=== PATIENT | male | born 1940 | race Caucasian/White ===

== ENCOUNTER 2016-07-22 10:12 | Outpatient (CLI) | payer OTHER ==
[~2016-07-22 10:12] MED LIST: ASPIRIN 81 LOW81 MG PO; B12-ACTIVE1 MG PO; COREG25 MG PO; DYAZIDE1 CAP PO; FLOVENT HFA110 MCG IN; LEVOFLOXACIN250 MG PO; LISINOPRIL10 MG PO; MAXZIDE-25 PO; SIMVASTATIN20 MG; TAMIFLU30 MG PO; TAMIFLU75 MG PO; VENTOLIN HFA IN; VITAMIN D-32000 UNIT PO
--- NOTE | 2016-07-22 16:02 | DIAGNOSTIC IMAGING REPORT ---
PROCEDURE: XR BARIUM SWALLOW INDICATION: Persistent cough. Congestion. Recent pneumonia. TECHNIQUE: Double contrast study. Fluoroscopy time, 3.5 minutes; (N/A mGy due to technical factors). 47 fluoroscopic images (including cine fluoroscopy of the esophagus). COMPARISON: Compared to chest x-ray and 07/05/2016. FINDINGS: Pharyngoesophagus is normal. There is moderate generalized tapering of the distal thoracic esophagus (8 mm) with moderate distention of the thoracic esophagus, and pooling of ingested fluid. There was no evidence of reflux on this study. The rest of the thoracic esophagus is normal. No polypoid or mass lesions are identified. IMPRESSION: 1. Normal pharyngoesophagus. 2. There is distention of the thoracic esophagus with generalized tapering and narrowing of the distal esophagus (8 mm). This is associated with pooling of ingested material in the esophagus. Overall appearance is compatible with achalasia. While there is no evidence of reflux on this study, one might also consider the possibility of chronic reflux stricture. 3. Findings discussed with the patient.
[2016-08-24] MEDS ORDERED: FUROSEMIDE20 MG PO ×2 (04:48)
== END 2016-07-22 23:00 ==
LOC: XR SRH 10:12
DX: R05 Cough (principal)

== ENCOUNTER 2016-07-24 13:08 | Outpatient (CLI) | payer OTHER ==
--- NOTE | 2016-07-26 12:45 | DIAGNOSTIC IMAGING REPORT ---
PROCEDURE: 2-D M-mode echo Doppler CLINICAL INDICATION: Atrial head abnormal EKG history of mitral valve repair aortic dissection repair aortic dissection repair TECHNIQUE: Standard 2-D M-mode echo Doppler technique COMPARISON: None available FINDINGS: This is a technically difficult study with the patient not been able to lie still and poor windows. The aortic valve exhibits aortic sclerosis with 1+ aortic insufficiency the mitral valve has evidence of repair with 2+ MR detected. The tricuspid valve is normal configuration with severe TR is apparent with RVSP 59 pulmonic valve appears to be normal but is poorly visualized left and right atrial dimensions are increased ventricular dimension is normal LVH is present left ventricular ejection fraction is 50-55% mildly diffusely decreased. The aortic root is increased in size measuring 4.7 cm small area dissection cannot be ruled out in this technically difficult study. There is an area in the abdominal aorta/lower thoracic aorta measures 6.3 cm right ventricle is mildly moderately increased in size with preserved function IMPRESSION: Technically difficult study Aortic sclerosis no stenosis Cannot rule out bicuspid aortic valve 1+ AI 2+ MR 3+ severe TR with RVSP 59 Aortic root is enlarged and 4.7 cm Lower thoracic/upper abdominal aorta measuring 6.3 cm RVE with mild to moderate reduction RV function Recommend: CTA of the thoracic and abdominal and clinical correlation
[2016-08-24] MEDS ORDERED: FUROSEMIDE20 MG PO ×2 (04:48)
== END 2016-07-24 23:00 ==
LOC: US SRH 13:08
DX: I48.91 Unspecified atrial fibrillation (principal); I70.0 Atherosclerosis of aorta; I08.3 Combined rheumatic disorders of mitral, aortic and tricuspid valves

== ENCOUNTER 2016-08-23 18:33 | Inpatient (IN) | payer OTHER ==
[~2016-08-23] VITALS: Ht 170.2 cm; Wt 73.3 kg
--- NOTE | 2016-08-23 22:00 | DIAGNOSTIC IMAGING REPORT ---
PROCEDURE: XR CHEST 1 VIEW INDICATION: EDEMA TECHNIQUE: Portable AP view (2230 hours). COMPARISON: Compared to chest x-ray on 07/05/2016. FINDINGS: Interval resolution of pulmonary edema and small right pleural effusion. Large calcified left pleural plaque. Status post mediastinotomy. Moderate cardiomegaly. Tortuous aorta. Thorax is unchanged. IMPRESSION: 1. Interval resolution of pulmonary edema. 2. Large calcified left pleural plaques. 3. Moderate cardiomegaly. Status post mediastinotomy. 4. Otherwise negative chest.
--- NOTE | 2016-08-23 22:17 | ED CLINICAL REPORT ---
Clinical Report - Physicians/Mid Levels [facility] [address] [place] [address] 08/23/2016 18:33 Patient: ERYN ALVARADO Time Seen: 20:00. Arrived- By private vehicle. Historian- patient. HISTORY OF PRESENT ILLNESS Chief Complaint: (scrotal swelling). This started about 1 week ago and is still present. The problem is described as severe. It was gradual in onset and has been constant. No genital lesion or testicular pain. Sexual history is not noncontributory. Similar symptoms previously: Diagnosis: (renal failure). Recent medical care: Not recently seen/assessed. REVIEW OF SYSTEMS No chills, fever, sweats, calf pain or chest pain. No cough, difficulty breathing, palpitations, abdominal pain or black stools. No bloody stools, constipation, diarrhea, nausea or vomiting. The patient has had moderate pedal edema involving the right and left leg (chronically). It has been similar to previous symptoms. He has had incontinence of urine. He is supposed to be on Xarelto but his samples ran out and his doesn't think he's taking it. All systems otherwise negative, except as recorded above. PAST HISTORY See nurses notes. ( PCP - Sherron). Medications: Aspir-81 Oral. B-12 Oral. Carvedilol Oral (Tablet 25 mg) 1 tablet, 2 x daily. D3. Flovent HFA Inhalation (Aerosol 110 mcg/act) 2 puffs , 2x a day. Lasix Oral 40 mg, daily. Losartan Potassium Oral 50 mg, daily. Simvastatin Oral 20 mg, daily. Spironolactone Oral 25 mg, daily. Ventolin HFA Inhalation (Aerosol Solution 108 (90 Base) mcg/act) 2 puffs every 4 hours as needed for wheezing (states he hasn't been using lately ). Xarelto Oral (Tablet 15 mg), daily. Allergies: Azithromycin. Moderate(itching, rash) (RX on 05/18/14 - in the ER for allergic reaction on 05/22/14. Stopped. ). SOCIAL HISTORY Former smoker, end date 1966. Occasional alcohol use. No drug use. Resides in a house. He lives with spouse. FAMILY HISTORY Diabetes in first-degree relative (sibling and a child) and grandparent. ADDITIONAL NOTES The nursing notes have been reviewed. PHYSICAL EXAM Vital Signs: 08/23/2016 19:55 BP: 149/89. HR: 72. RR: 18. O2 saturation: 96%. Temp: 97 F. Have been reviewed. Appearance: Alert. ENT: Pharynx normal. Neck: Neck supple. CVS: 3/6 systolic murmur. Respiratory: No respiratory distress. Breath sounds normal. No rales or wheezes. Abdomen: Soft and nontender. Bowel sounds normal. No organomegaly. No mass. : Severe scrotal swelling with tenderness. Skin: Skin warm but moist. Normal skin color. Extremities: Bilateral mild pitting edema of the lower extremities. Extremities exhibit normal ROM. No calf tenderness. (with hyperpigmentation and hairlessness bilaterally). LABS, X-RAYS, AND EKG Scrotal Sonogram: PROCEDURE: US SCROTUM/TESTICLE INDICATION: SCROTAL SWELLING TECHNIQUE: Morales scale and color Doppler sonographic images through the scrotum were obtained. COMPARISON: None. FINDINGS: There is moderate to marked edema of the scrotal wall (4 cm left, 2.5 cm right). No evidence of fluid collection or abscess. RIGHT TESTICLE: Right testicle is atrophic (2.8 cm) with normal vascularity. Small right hydrocele. Right epididymis is normal. LEFT TESTICLE: Left testicle is atrophic (2.6 cm) with normal vascularity. Small left hydrocele. Left epididymis is normal. IMPRESSION: 1. Moderate bilateral scrotal swelling and edema, left greater right. 2. Normal testicles (atrophic). 3. Small bilateral hydroceles. Indication for study: swelling. The exam was performed by a cytogenetic technician. The study was independently viewed by me and interpreted by the radiologist. The study was discussed with the radiologist (via phone and pacs). Laboratory Tests: UA-Culture if indicated: (EMIR: 08/23/2016 19:38) ( MsgRcvd 08/23/2016 20:38) Final results Test Result Flag Units (Reference) URINE COLOR YELLOW URINE APPEARANCE CLEAR URINE GLUCOSE NEGATIVE (NEGATIVE) URINE BILIRUBIN NEGATIVE (NEGATIVE) URINE KETONE NEGATIVE (NEGATIVE) URINE SPECIFIC GRAVITY 1.010 (1.010-1.030) URINE PH 7.0 (5.0-8.0) URINE PROTEIN NEGATIVE (NEGATIVE) URINE UROBILINOGEN 0.2 EU/dL (0.2-1.0) URINE NITRITE NEGATIVE (NEGATIVE) URINE BLOOD NEGATIVE (NEGATIVE) URINE LEUK ESTERASE POSITIVE (NEGATIVE) URINE RBC 1-3 rbc/hpf (0-1) URINE WBC 3-5 wbc/hpf (0-1) URINE EPITHELIAL CELLS 1-3 EPI/hpf (0-5) URINE BACTERIA TRACE (<1+) (NONE SEEN) URINE COMMENT CULTURE INDICATED URINE CULTURES ARE SET-UP BASED ON THE FOLLOWING CRITERIA:POSITIVE NITRITEPOSITIVE LEUKOCYTE ESTERASEGREATER THAN 10 WHITE BLOOD CELLSMODERATE (2+) OR GREATER BACTERIA CBC w Diff: (EMIR: 08/23/2016 20:47) ( MsgRcvd 08/23/2016 21:02) Final results Test Result Flag Units (Reference) WHITE BLOOD COUNT 7.1 K/uL (4.5-11.5) RED BLOOD COUNT 3.41 L M/uL (4.50-5.90) HEMOGLOBIN 10.8 L gm/dL (13.5-17.5) HEMATOCRIT 33.7 L % (41.0-53.0) MEAN CELL VOLUME 99 fL (80-100) MEAN CORPUSCULAR HGB 32 pg (26-34) MEAN CORPUSCULAR HGB CONC 32 g/dL (31-37) RED CELL DISTRIBUTION WIDTH 16.9 H % (11.6-14.8) PLATELET COUNT 153 K/uL (150-400) NEUTROPHIL % 75.5 H % (50-75) LYMPH % 9.3 L % (25-40) MONO % 10.0 % (3-14) EOSINOPHIL % 5.0 H % (0-4) BASOPHIL % 0.2 % (0-2) PT with INR: (EMIR: 08/23/2016 20:47) ( MsgRcvd 08/23/2016 21:05) Final results Test Result Flag Units (Reference) INR 1.1 (0.8-1.2) Low Intensity Therapy: INR 1.5-2.0 PT range 18.5-23.1Mod.Intensity Therapy: INR 2.0-3.0 PT range 23.1-31.5High Intensity Therapy: INR 2.5-3.5 PT range 27.4-35.5High Intensity Therapy 2: INR 3.0-4.0 PT range 31.5-39.3 APTT 29 SECONDS (24-34) BNP: (EMIR: 08/23/2016 20:47) ( MsgRcvd 08/23/2016 21:23) Final results Test Result Flag Units (Reference) B-TYPE NATRIURETIC PEPTIDE 1130 H pg/ml (5-100) CMP: (EMIR: 08/23/2016 20:47) ( MsgRcvd 08/23/2016 21:24) Final results Test Result Flag Units (Reference) GLUCOSE 109 mg/dL (70-110) BUN 36 H mg/dL (7-18) CREATININE 1.4 H mg/dL (0.6-1.3) Estimated GFR 52.51 mL/min Estimated GFR- >60 mL/min Note: Persistent reduction over 3 months in eGFR<60 mL/min/1.73 m2 defines CKD. Patients with eGFR values>=60 mL/min/1.73 m2 may also have CKD if evidence ofpersistent proteinuria. Additional information may be foundat www.kidney.org. SODIUM 141 mmol/L (136-145) POTASSIUM 4.6 mmol/L (3.5-5.1) CHLORIDE 104 mmol/L (98-107) CARBON DIOXIDE 30 mmol/L (21-32) CALCIUM 9.0 mg/dL (8.5-10.1) TOTAL PROTEIN 7.2 g/dL (6.4-8.2) ALBUMIN 3.5 g/dL (3.3-5.0) BILIRUBIN, TOTAL 1.5 H mg/dL (0.0-1.0) ALKALINE PHOSPHATASE 145 H U/L (46-116) AST (SGOT) 33 U/L (15-37) ALT (SGPT) 27 U/L (12-78) LIPASE 159 U/L (73-393) AMYLASE 69 U/L (25-115) CPK 79 U/L (24-260) TROPONIN I <0.05 ng/mL (0.00-1.5) TROPONIN REFERENCE RANGE:<0.1 NEGATIVE0.1-1.5 INDETERMINANT>1.5 POSITIVE . PROGRESS AND PROCEDURES Course of Care: 21:19 08/23/16. the case was discussed with Dr. Coates change of shift. We reviewed the patient's history and examination findings. He will follow up on the results the patient's pending studies and will arrange an appropriate disposition for him. - PAPO the patient is a 75-year-old male presenting for evaluation of scrotal swelling. Patient has been evaluated by me personally. I have introduced myself to the patient. Agree with the prior physician's assessment and plan. Follow-up with the patient's laboratory studies and possible admission to the hospital. The patient noted to have severe scrotal swelling. No crepitus. No signs of foreign's gangrene. Because of the patient's swelling, ultrasound has been ordered. Will follow-up on the results of the ultrasound Ultrasound results are noted for the findings above. The patient's also noted to have elevation in the BNP. Feel the patient is likely havingscrotal edema secondary to congestive heart failure. Medications for congestive heart failure given. Patient is agreeable to treatment plan. Troponin is negative B normal. Did not feel patient is havingcongestive heart failure exacerbation because of acute myocardial infarction. Breathing is noted to be regular and nonlabored. I discussed case with the hospitalist works at the patient. Do not for patient is being admitted to the intensive care unit or require further emergency department workup/evaluation. Patient is stable for floorplease make treatment. Patient was admitted without incident. I discussed with the patient and family prior to their departure theworkup, diagnosis, plan of care. Patient and family are agreeable. Critical care performed (40 minutes). Time is exclusive of separately billable procedures. Time includes: direct patient care, patient reassessment, coordination of patient care, review of patient's medical records, medical consultation, family consultation regarding treatment decisions and documentation of patient care. Consult obtained. Hospitalist for admission. Disposition: Discharged. Condition: good. CLINICAL IMPRESSION acute CHF exacerbation acute bilateral scrotal edema. (Electronically signed by Remi Coates Dr. 08/27/2016 11:33)
--- NOTE | 2016-08-23 22:17 | ED ORDER SUMMARY ---
..... Patient: ERYN ALVARADO OrderSheet [facility] VisitID: [id number] [address] [place] [address] 75y, M Registration Date/Time: 08/23/2016 ORDER SHEET Weight: 72.5 kg (stated) Allergies: Azithromycin GENERAL ORDERS: Chest 1V Urgent (20:19 08/23/2016 Mak LANDRY) (Ack 20:23 CHagerty ER Boiler Fireman) (20:25 CHagalexa ER Boiler Fireman) Pants Busheler (Continuous) (20:19 08/23/2016 Mak LANDRY) (21:06 Giancarlo R.N.) CBC w Diff Urgent (20:20 08/23/2016 Mak LANDRY) (Ack 20:23 Eder ER Boiler Fireman) (21:06 Giancarlo R.N.) CMP Urgent (20:20 08/23/2016 Mak LANDRY) (Ack 20:23 CHagalexa ER Boiler Fireman) (21:06 Giancarlo R.N.) UA-Culture if indicated Urgent (20:20 08/23/2016 Mak LANDRY) (Ack 20:23 CHagalexa ER Boiler Fireman) (20:24 CHagalexa ER Boiler Fireman) PT with INR Urgent (20:20 08/23/2016 Mak LANDRY) (Ack 20:23 Eder ER Boiler Fireman) (21:06 Giancarlo R.N.) PTT Urgent (20:20 08/23/2016 Mak LANDRY) (Ack 20:23 CHagalexa ER Boiler Fireman) (21:06 Giancarlo R.N.) Amylase Urgent (20:20 08/23/2016 Mak LANDRY) (Ack 20:23 CHagalexa ER Boiler Fireman) (21:06 Giancarlo R.N.) Lipase Urgent (20:20 08/23/2016 Mak LANDRY) (Ack 20:23 CHagalexa ER Boiler Fireman) (21:06 Giancarlo R.N.) CPK Urgent (20:20 08/23/2016 Mak LANDRY) (Ack 20:23 CHagalexa ER Boiler Fireman) (21:06 Giancarlo R.N.) Troponin-I Urgent (20:20 08/23/2016 Mak LANDRY) (Ack 20:23 CHagerty ER Boiler Fireman) (21:06 Giancarlo R.N.) BNP Urgent (20:20 08/23/2016 Mak LANDRY) (Ack 20:23 CHagalexa ER Boiler Fireman) (21:06 Giancarlo R.N.) Oxygen (2 L/min) (NC) (20:20 08/23/2016 Mak LANDRY) (21:06 Giancarlo R.N.) Pulse oximeter (20:20 08/23/2016 Mak LANDRY) (21:06 Giancarlo R.N.) EKG - ER Stat (20:20 08/23/2016 Mak LANDRY) (Ack 20:23 CHagerty ER Boiler Fireman) (20:35 CHagerty ER Boiler Fireman) US Scrotum/Testicular Urgent (22:04 08/23/2016 Michael De La Garza) (Ack 22:07 CHagerty ER Boiler Fireman) (23:26 Giancarlo R.N.) MEDICATION ORDERS: IV FLUIDS: IV Saline Lock (20:20 08/23/2016 Mak LANDRY) (21:07 JBrasheed R.N.) Lasix IV 40 mg (NOW) (22:04 08/23/2016 Michael De La Garza) (22:37 Giancarlo R.N.) ORDER SHEET NOTES: [Electronically signed by Livan Kidd R.N. (03:06 08/24/2016)] [Electronically signed by Remi Coates Dr. (11:33 08/27/2016)] [Electronically locked/signed by Livan Kidd R.N. (03:06 08/24/2016)]
--- NOTE | 2016-08-23 22:17 | ED ORDER SUMMARY ---
..... Patient: ERYN ALVARADO OrderSheet [facility] VisitID: [id number] [address] [place] [address] 75y, M Registration Date/Time: 08/23/2016 ORDER SHEET Weight: 72.5 kg (stated) Allergies: Azithromycin GENERAL ORDERS: Chest 1V Urgent (20:19 08/23/2016 Mak LANDRY) (Ack 20:23 CHagerty ER Counter Professional) (20:25 CHagalexa ER Counter Professional) Sheet Folder (Continuous) (20:19 08/23/2016 Mak LANDRY) (21:06 Giancarlo R.N.) CBC w Diff Urgent (20:20 08/23/2016 Mak LANDRY) (Ack 20:23 Eder ER Counter Professional) (21:06 Giancarlo R.N.) CMP Urgent (20:20 08/23/2016 Mak LANDRY) (Ack 20:23 CHagalexa ER Counter Professional) (21:06 Giancarlo R.N.) UA-Culture if indicated Urgent (20:20 08/23/2016 Mak LANDRY) (Ack 20:23 CHagalexa ER Counter Professional) (20:24 CHagalexa ER Counter Professional) PT with INR Urgent (20:20 08/23/2016 Mak LANDRY) (Ack 20:23 Eder ER Counter Professional) (21:06 Giancarlo R.N.) PTT Urgent (20:20 08/23/2016 Mak LANDRY) (Ack 20:23 CHagalexa ER Counter Professional) (21:06 Giancarlo R.N.) Amylase Urgent (20:20 08/23/2016 Mak LANDRY) (Ack 20:23 CHagalexa ER Counter Professional) (21:06 Giancarlo R.N.) Lipase Urgent (20:20 08/23/2016 Mak LANDRY) (Ack 20:23 CHagalexa ER Counter Professional) (21:06 Giancarlo R.N.) CPK Urgent (20:20 08/23/2016 Mak LANDRY) (Ack 20:23 CHagalexa ER Counter Professional) (21:06 Giancarlo R.N.) Troponin-I Urgent (20:20 08/23/2016 Mak LANDRY) (Ack 20:23 CHagerty ER Counter Professional) (21:06 Giancarlo R.N.) BNP Urgent (20:20 08/23/2016 Mak LANDRY) (Ack 20:23 CHagalexa ER Counter Professional) (21:06 Giancarlo R.N.) Oxygen (2 L/min) (NC) (20:20 08/23/2016 Mak LANDRY) (21:06 Giancarlo R.N.) Pulse oximeter (20:20 08/23/2016 Mak LANDRY) (21:06 Giancarlo R.N.) EKG - ER Stat (20:20 08/23/2016 Mak LANDRY) (Ack 20:23 CHagerty ER Counter Professional) (20:35 CHagerty ER Counter Professional) US Scrotum/Testicular Urgent (22:04 08/23/2016 Michael De La Garza) (Ack 22:07 CHagerty ER Counter Professional) (23:26 Giancarlo R.N.) MEDICATION ORDERS: IV FLUIDS: IV Saline Lock (20:20 08/23/2016 Mak LANDRY) (21:07 JBrasheed R.N.) Lasix IV 40 mg (NOW) (22:04 08/23/2016 Michael De La Garza) (22:37 Giancarlo R.N.) ORDER SHEET NOTES: [Electronically signed by Livan Kidd R.N. (03:06 08/24/2016)] [Electronically signed by Remi Coates Dr. (11:33 08/27/2016)] [Electronically locked/signed by Livan Kidd R.N. (03:06 08/24/2016)]
--- NOTE | 2016-08-23 22:17 | ED NURSING NOTES ---
Clinical Report - Nurses [facility] [address] [place] [address] 08/23/2016 18:33 Patient: ERYN ALVARADO TRIAGE Triage time 1954. Acuity: LEVEL 3. Chief Complaint: TESTICULAR PAIN and SCROTAL SWELLING and INGUINAL SWELLING. --20:02 Livan Kidd R.N. 19:55 08/23/16. BP: 149/89. HR: 72. RR: 18. O2 saturation: 96%. Temp: 97 F. --20:02 Livan Kidd R.N. Weight: 72.5 kg stated. Height/Length: 67 inches Per Patient. BMI: 25.1. --19:59 Livan Kidd R.N. Medications Aspir-81 Oral. B-12 Oral. Carvedilol Oral (Tablet 25 mg) 1 tablet, 2 x daily. D3. Flovent HFA Inhalation (Aerosol 110 mcg/act) 2 puffs , 2x a day. Lasix Oral 40 mg, daily. Losartan Potassium Oral 50 mg, daily. Simvastatin Oral 20 mg, daily. Spironolactone Oral 25 mg, daily. Ventolin HFA Inhalation (Aerosol Solution 108 (90 Base) mcg/act) 2 puffs every 4 hours as needed for wheezing (states he hasn't been using lately ). Xarelto Oral (Tablet 15 mg), daily. --19:57 Livan Kidd R.N. Allergies Azithromycin. Moderate(itching, rash) (RX on 05/18/14 - in the ER for allergic reaction on 05/22/14. Stopped. ) --19:57 Livan Kidd R.N. History Arrived by private vehicle. Historian: spouse and patient. Accompanied by spouse. Onset. (about 1 weeks). 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 SOCIAL HX: Occasional alcohol use; consumes beer occasionally. FALL RISK ASSESSMENT: Fall risk assessment completed. No fall risk identified. NUTRITIONAL RISK ASSESSMENT: The nutritional risk assessment revealed no deficiencies. FUNCTIONAL ASSESSMENT: Functional assessment: no impairments noted. LEARNING NEEDS ASSESSMENT: The learning needs assessment revealed no barriers. SKIN INTEGRITY ASSESSMENT: Skin integrity risk assessment completed. No skin integrity risk identified. --20:02 Livan Kidd R.N. PROBLEMS: Congestive Heart Failure. Dehydration. Influenza. Facial Fracture. Head Injury. Laceration. Fall. Hearing Loss. Renal Failure. Aortic Disease. Valvular Heart Disease. Cough. Hypertension. Heart Disease. Healing Wound. Cellulitis Check. Anemia. Hematoma. Cellulitis. Allergic Reaction. Immunizations. Home oxygen. Compartment Syndrome. Bronchitis. Bronchospasm. Dyspnea. Cardiomegaly. Aortic Dissection. --19:57 Livan Kidd R.N. Dialysis [Resolved]. --19:57 Livan Kidd R.N. ADDITIONAL SURGERIES: Cataract Surgery. Heart surgeries multiple. Hernia Repair. Left Knee surgery. Lung surgeries. Mitral valvuloplasty. Peritoneal dialysis. --19:58 Livan Kidd R.N. Interventions ID band on patient. --20:02 Livan Kidd R.N. NURSING PROGRESS NOTES EKG time: (2032 PM). EKG was ordered, performed by a tech and shown to the ED physician. --20:43 Candi Buchanan 20:52 08/23/2016 Site #1 started via IV in the right antecubital space with an 18g angiocath, with aseptic technique and good blood return; one attempt. Blood drawn: rainbow set. Labeled in the presence of the patient and sent to the lab. Saline lock flushed with saline. --21:07 Livan Kidd R.N. 22:27 08/23/2016 Lasix IVP 40 mg given over 5 minute(s) via site #1. Allergies verified and confirmed 5 rights. IV patency established. IV site checked: no pain, redness, or swelling. IV flushed thoroughly pre- and post-medication administration. --22:37 Livan Kidd R.N. 22:50 Patient used urinal at bedside. --22:50 Vito Allen R.N. 22:50 computer repair technician with pt for exam. --22:51 Vito Allen R.N. DISPOSITION / DISCHARGE Transported via stretcher by transport team. Report was given to a nurse via a phone call. Report included patient's care, treatment, medications, reviewed medication reconcilliation, and condition (including any recent changes or anticipated changes). All questions were answered. Report was acknowledged and care was transferred. Bed obtained and ready. --01:21 Livan Kidd R.N. Locked/Released at 08/24/2016 3:06 by Livan Kidd R.N.
--- NOTE | 2016-08-23 22:17 | ED NURSING NOTES ---
Clinical Report - Nurses [facility] [address] [place] [address] 08/23/2016 18:33 Patient: ERYN ALVARADO TRIAGE Triage time 1954. Acuity: LEVEL 3. Chief Complaint: TESTICULAR PAIN and SCROTAL SWELLING and INGUINAL SWELLING. --20:02 Livan Kidd R.N. 19:55 08/23/16. BP: 149/89. HR: 72. RR: 18. O2 saturation: 96%. Temp: 97 F. --20:02 Livan Kidd R.N. Weight: 72.5 kg stated. Height/Length: 67 inches Per Patient. BMI: 25.1. --19:59 Livan Kidd R.N. Medications Aspir-81 Oral. B-12 Oral. Carvedilol Oral (Tablet 25 mg) 1 tablet, 2 x daily. D3. Flovent HFA Inhalation (Aerosol 110 mcg/act) 2 puffs , 2x a day. Lasix Oral 40 mg, daily. Losartan Potassium Oral 50 mg, daily. Simvastatin Oral 20 mg, daily. Spironolactone Oral 25 mg, daily. Ventolin HFA Inhalation (Aerosol Solution 108 (90 Base) mcg/act) 2 puffs every 4 hours as needed for wheezing (states he hasn't been using lately ). Xarelto Oral (Tablet 15 mg), daily. --19:57 Livan Kidd R.N. Allergies Azithromycin. Moderate(itching, rash) (RX on 05/18/14 - in the ER for allergic reaction on 05/22/14. Stopped. ) --19:57 Livan Kidd R.N. History Arrived by private vehicle. Historian: spouse and patient. Accompanied by spouse. Onset. (about 1 weeks). 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 SOCIAL HX: Occasional alcohol use; consumes beer occasionally. FALL RISK ASSESSMENT: Fall risk assessment completed. No fall risk identified. NUTRITIONAL RISK ASSESSMENT: The nutritional risk assessment revealed no deficiencies. FUNCTIONAL ASSESSMENT: Functional assessment: no impairments noted. LEARNING NEEDS ASSESSMENT: The learning needs assessment revealed no barriers. SKIN INTEGRITY ASSESSMENT: Skin integrity risk assessment completed. No skin integrity risk identified. --20:02 Livan Kidd R.N. PROBLEMS: Congestive Heart Failure. Dehydration. Influenza. Facial Fracture. Head Injury. Laceration. Fall. Hearing Loss. Renal Failure. Aortic Disease. Valvular Heart Disease. Cough. Hypertension. Heart Disease. Healing Wound. Cellulitis Check. Anemia. Hematoma. Cellulitis. Allergic Reaction. Immunizations. Home oxygen. Compartment Syndrome. Bronchitis. Bronchospasm. Dyspnea. Cardiomegaly. Aortic Dissection. --19:57 Livan Kidd R.N. Dialysis [Resolved]. --19:57 Livan Kidd R.N. ADDITIONAL SURGERIES: Cataract Surgery. Heart surgeries multiple. Hernia Repair. Left Knee surgery. Lung surgeries. Mitral valvuloplasty. Peritoneal dialysis. --19:58 Livan Kidd R.N. Interventions ID band on patient. --20:02 Livan Kidd R.N. NURSING PROGRESS NOTES EKG time: (2032 PM). EKG was ordered, performed by a tech and shown to the ED physician. --20:43 Candi Buchanan 20:52 08/23/2016 Site #1 started via IV in the right antecubital space with an 18g angiocath, with aseptic technique and good blood return; one attempt. Blood drawn: rainbow set. Labeled in the presence of the patient and sent to the lab. Saline lock flushed with saline. --21:07 Livan Kidd R.N. 22:27 08/23/2016 Lasix IVP 40 mg given over 5 minute(s) via site #1. Allergies verified and confirmed 5 rights. IV patency established. IV site checked: no pain, redness, or swelling. IV flushed thoroughly pre- and post-medication administration. --22:37 Livan Kidd R.N. 22:50 Patient used urinal at bedside. --22:50 Vito Allen R.N. 22:50 natural gas plant technician with pt for exam. --22:51 Vito Allen R.N. DISPOSITION / DISCHARGE Transported via stretcher by transport team. Report was given to a nurse via a phone call. Report included patient's care, treatment, medications, reviewed medication reconcilliation, and condition (including any recent changes or anticipated changes). All questions were answered. Report was acknowledged and care was transferred. Bed obtained and ready. --01:21 Livan Kidd R.N. Locked/Released at 08/24/2016 3:06 by Livan Kidd R.N.
--- NOTE | 2016-08-23 23:37 | DIAGNOSTIC IMAGING REPORT ---
PROCEDURE: US SCROTUM/TESTICLE INDICATION: SCROTAL SWELLING TECHNIQUE: Morales scale and color Doppler sonographic images through the scrotum were obtained. COMPARISON: None. FINDINGS: There is moderate to marked edema of the scrotal wall (4 cm left, 2.5 cm right). No evidence of fluid collection or abscess. RIGHT TESTICLE: Right testicle is atrophic (2.8 cm) with normal vascularity. Small right hydrocele. Right epididymis is normal. LEFT TESTICLE: Left testicle is atrophic (2.6 cm) with normal vascularity. Small left hydrocele. Left epididymis is normal. IMPRESSION: 1. Moderate bilateral scrotal swelling and edema, left greater right. 2. Normal testicles (atrophic). 3. Small bilateral hydroceles. 4. Findings discussed with Dr. Coates.
--- NOTE | 2016-08-24 01:21 | HISTORY AND PHYSICAL ---
ADMITTED: 08/23/2016 CHIEF COMPLAINT: 1. Scrotal swelling HISTORY OF PRESENT ILLNESS: A 75-year-old male with history of CHF presents to [facility] with increased swelling of the scrotum. He noted this starting about a week ago and increasing to where it is severe, causing him marked pain and discomfort. He denies any injury to the area. He notes he has difficulty urinating because the edema interferes with the flow of urine and "makes a mess." MEDICAL/SURGICAL HISTORY: Past medical history remarkable for memory loss, pneumonia, atrial fibrillation, congestive heart failure with grade 2 diastolic dysfunction and ejection fraction of 57%, carotid bruit, renal insufficiency, obstructive sleep apnea, hypertension, mitral valve prolapse, chronic anticoagulation therapy, cardiomegaly, and DVT of the lower extremity. Surgeries: Aorta repair on 02/02/2010 for aortic aneurysm, open heart surgery on 08/03/2009, repair of mitral valve on 07/12/2009. MEDICATIONS: 1. Xarelto 15 mg p.o. daily. 2. Furosemide 20 mg 2 p.o. q.a.m. and 1 at noon. 3. Spironolactone 25 mg p.o. daily. 4. Aspirin 81 mg p.o. daily. 5. Ventolin HFA 2 puffs q.4 hours p.r.n. 6. Flovent HFA 2 puffs b.i.d. 7. Vitamin B12 1000 mcg daily. 8. Losartan ------- 1 p.o. daily. 9. Vitamin ------- p.o. daily. 10. Carvedilol 25 mg p.o. b.i.d. 11. Simvastatin 20 mg p.o. daily. ALLERGIES: 1. AZITHROMYCIN CAUSES ITCHING. 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 FAMILY HISTORY: Mother of heart failure at age 93. Father of uncertain etiology. He had diabetes and cancer. Brother has COPD. One sister of cancer, unknown type. REVIEW OF SYSTEMS: General: Denies fevers or chills, but admits to malaise. HEENT: Denies ear pain, vision changes, sore throat. Respiratory: Denies shortness of breath, wheezing, or cough, other than normal baseline dyspnea with exertion. Cardiovascular: Denies chest pain, palpitations, or paroxysmal nocturnal dyspnea. Gastrointestinal: Denies nausea, vomiting, diarrhea, constipation, melena, or bright red blood per rectum. Genitourinary: The patient admits to poor urinary stream due to edema. He denies dysuria or hematuria. PHYSICAL EXAMINATION: ------- LAB/IMAGING: Urinalysis reveals specific gravity 1.010, pH 7.0, positive leukocyte esterase, trace bacteria. WBC 7.1, hemoglobin 10.8, platelet count 153. INR 1.1. BNP 1130. Glucose 109, creatinine 1.4, sodium 141, potassium 4.6, chloride 104, bicarbonate 30, calcium 9.0. Total bilirubin 1.5, alkaline phosphatase 145, AST 33, ALT 27, lipase 159, amylase 69. CPK 79. Troponin less than 0.05. IMPRESSION: 1. Congestive heart failure, acute exacerbation. 2. Acute scrotal edema. 3. Urinary tract infection. 4. Chronic atrial fibrillation and valvular heart disease, on chronic anticoagulation. PLAN: Admit to [facility] for intravenous diuresis and control of edema. Antibiotics will be initiated for urinary tract infection. Intakes and outputs and telemetry will be monitored. The patient has significant risk due to prior coronary artery disease and congestive heart failure exacerbation. HE REQUESTS FULL CODE STATUS.
[2016-08-24 02:41] VITALS: BP 138/71
[2016-08-24] MEDS ORDERED: XARELTO10 MG PO (04:46)
[2016-08-24] MEDS ORDERED: FUROSEMIDE20 MG PO ×3 (04:48)
[2016-08-24] MEDS ORDERED: SPIRONOLACTONE25 MG PO (04:50)
[2016-08-24] MEDS ORDERED: COZAAR25 MG PO (04:52)
[2016-08-24] MEDS ORDERED: CARVEDILOL25 MG PO (05:02)
[2016-08-24 07:00] VITALS: BP 115/72
[2016-08-24 11:27] VITALS: BP 115/72
[2016-08-24 14:50] VITALS: BP 134/79
[2016-08-24 18:49] VITALS: BP 118/74
[2016-08-24 22:33] VITALS: BP 125/78
[2016-08-25 02:52] VITALS: BP 123/77
[2016-08-25 07:11] VITALS: BP 134/80
--- NOTE | 2016-08-25 08:03 | Progress Note ---
Medications and Allergies Allergies Coded Allergies: Azithromycin (Severe, 08/29/16) Physical Exam LAB Results Laboratory Tests 08/25 08/25 08/25 0625 0625 0625 Chemistry Plasma Sodium Pending Plasma Potassium Pending Plasma Chloride Pending CO2 (Enzymatic) Pending BUN Pending Creatinine Pending Est GFR ( Amer) Pending Est GFR (Non-Af Amer) Pending Glucose Pending Plasma Calcium Pending Iron (35 - 150 ug/dL) 36 TIBC (260 - 445 ug/dL) 215 Iron Saturation (15 - 50 %) 17 Vitamin B12 Pending Folate Pending Trimethoprim/ 1 TAB BID 08/24 0035 AC 08/24 Sulfamethoxazole PO 205 Albuterol Sulfate 2.5 MG RTQ4H PRN 08/24 29 AC IN Fluticasone See Dose RTBID 08/24 23 AC Propionate Insts (1) IN Carvedilol 25 MG BIDWC 08/24 0023 AC 08/24 PO 1823 Candesartan Cilexetil 4 MG BID 08/242 AC 08/24 PO 205 Acetaminophen 650 MG Q6H PRN 08/24 0015 AC PO Al Hydrox/Mg Hydrox/ 15 ML Q1H PRN 08/24 0015 AC Simethicone PO Atropine Sulfate 0.5 MG Q3MIN PRN 08/24 0015 AC IV Docusate Sodium 250 MG BID PRN 08/24 0015 AC PO Lidocaine HCl See Dose ONCE PRN 08/24 0015 AC Insts (2) IV Magnesium Hydroxide 10 ML DAILY PRN 08/24 0015 AC PO Morphine Sulfate 2 MG Q3M PRN 08/24 0015 AC IV Nitroglycerin 0.4 MG Q5M PRN 08/24 0015 AC SL Ondansetron HCl 4 MG Q6H PRN 08/24 0015 AC IV Dose Instructions: (1)Fluticasone Propionate: 1 PUFF (2)Lidocaine HCl: 1.5 MG/KG Allergies Coded Allergies: Azithromycin (Severe, 07/04/16) Uncoded Allergies: SEASONAL ALLERGY (04/26/14) Physical Exam Vital Signs / I&Os Vital Signs Date Time Temp Pulse Resp B/P Pulse O2 O2 Flow FiO2 Ox Delivery Rate 08/25 07 98.2 71 20 134/80 93 Room Air 08/25 251 97.7 118 20 123/77 93 Room Air 02/18 2233 97.9 104 20 125/78 95 Room Air 2.0 08/24 2130 Room Air 08/24 1918 2.0 08/24 1849 98.4 72 20 118/74 92 Room Air 08/24 1823 74 08/24 1450 98.2 72 20 134/79 94 Room Air 08/24 1127 98.1 71 18 115/72 94 Room Air 08/24 1102 68 08/24 1053 Room Air I&O 08/25 0000 08/24 1600 08/24 0800 Intake Total 300 240 385 Output Total 1250 600 550 Balance -950 360 165 LAB Results Laboratory Tests 08/25 08/25 08/25 0625 0625 0625 Chemistry Plasma Sodium Pending Plasma Potassium Pending Plasma Chloride Pending CO2 (Enzymatic) Pending BUN Pending Creatinine Pending Est GFR ( Amer) Pending Est GFR (Non-Af Amer) Pending Glucose Pending Plasma Calcium Pending Iron (35 - 150 ug/dL) 36 TIBC (260 - 445 ug/dL) 215 Iron Saturation (15 - 50 %) 17 Vitamin B12 Pending Folate Pending Assessment and Plan Problem List 1. Acute exacerbation of CHF (congestive heart failure) 2. Scrotal edema 3. Chronic anticoagulation Status Chronic Onset Date Unknown 4. Atrial fibrillation Status Chronic Onset Date Unknown 5. UTI (urinary tract infection) Status Acute Onset Date Unknown Plan Current status: [current status] Anticipated discharge date: [discharge date] Anticipated discharge placement: [Home] Patient care time: Time spent in chart review, patient interview, physical exam, CPOE, and care documentation: [ ] minutes Visit to patient today: [ ] Complexity of care: [ ] E&M Codes Rounding: Inpt-Moderate/78428
[2016-08-25 11:20] VITALS: BP 129/73
--- NOTE | 2016-08-25 14:36 | Provider's Discharge Care Plan ---
Problem, Goal, Plan Problem List 1. Acute exacerbation of CHF (congestive heart failure) Goals: Improve disease control, Improve function, Improved health/wellness, Prevent disease progress Instructions: Follow up as directed, Take meds as directed, Avoid processed foods, Low-salt diet. weigh yourself daily and record weight. Present this to your physician at your next visit.
--- NOTE | 2016-08-25 14:40 | Discharge Summary ---
Discharge Summary Report Admit Date 08/23/16 Discharge Date 08/25/16 Admission Diagnosis 1. CHF-exacerbation Discharge Diagnosis 1. CHF-exacerbation 2. Anemia 3. Atrial fibrillation 4. Chronic anticoagulation Brief History The patient is a 75-year-old white male with history of CHF presented to [facility] with increased swelling of the scrotum. He noted this starting about a week ago and increasing to where it is severe, causing him marked pain and discomfort. He denies any injury to the area. He notes he has difficulty urinating because the edema interferes with the flow of urine and "makes a mess." ER evaluation was consistent with exacerbation of CHF. Secondary to the above, the patient was admitted by Lorenzo Turner M.D. for further evaluation and treatment. For other history present illness, past medical history, family history, social history, review of systems, and admission physical examination please see the patient's history and physical examination and ER visit note in the patient's medical record. Hospital Course The following problems and their management were noted during the patient's hospitalization: 1. CHF-exacerbation The patient presented with findings of CHF. He responded well to continued ARB, beta juliette, Lasix, and spironolactone therapy. At the time of discharge his symptoms were much improved. He denied any significant shortness of breath. He was up ambulating without problems. He will follow-up with his PCP in 2 days. 2. Anemia The patient had mild anemia. Serum iron studies, B12, folate were within normal limits. No signs of GI bleeding. Outpatient follow-up with Dr. Siu. 3. Atrial fibrillation Well-controlled. No further evaluation. Continue outpatient medical regimen 4. Chronic anticoagulation Stable. Continue xarelto. Follow-up with Dr. Siu this week General Appearance Alert, Oriented X3, Cooperative, No acute distress Lungs Minimal basilar crackles. Otherwise clear to auscultation. Cardiovascular Normal S1, Normal S2, irregular rhythm, rate controlled. Grade 2 -3/6 systolic murmur present Abdomen Soft, No tenderness, No hepatospenomegaly Neurological Strength at 5/5 X4 ext, Cranial nerves 3-12 NL Psych/Mental Status Mental status NL, Mood NL Lab/Imaging Laboratory Tests 08/25 08/25 08/25 0625 0625 0625 Chemistry Plasma Sodium (136 - 145 mmol/L) 140 Plasma Potassium (3.5 - 5.1 mmol/L) 4.0 Plasma Chloride (98 - 107 mmol/L) 102 CO2 (Enzymatic) (21 - 32 mmol/L) 34 BUN (7 - 18 mg/dL) 37 Creatinine (0.6 - 1.3 mg/dL) 1.6 Est GFR ( Amer) (mL/min) 54.55 Est GFR (Non-Af Amer) (mL/min) 45.01 Glucose (70 - 110 mg/dL) 198 Plasma Calcium (8.5 - 10.1 mg/dL) 8.7 Iron (35 - 150 ug/dL) 36 TIBC (260 - 445 ug/dL) 215 Iron Saturation (15 - 50 %) 17 Vitamin B12 (211 - 946 pg/mL) 3418 Folate (>3.0 ng/mL) 10.6 Discharge Instructions/Meds For other recommendations regarding discharge diet, activity, followup, and discharge medications please see the patient's discharge instructions. Discharge condition: Fair, improved Greater than 30 min. was spent in the patient's discharge preparation including discharge interview and physical examination, progress note, discharge instructions, and discharge summary The patient was interviewed and examined on the day of discharge. E&M Codes Discharge: Inpt >30 min spent/[id number]
--- NOTE | 2016-08-27 11:33 | ED DISCHARGE INSTRUCTIONS ---
Patient: ERYN ALVARADO General Instructions [facility] VisitID: [id number] [address] [place] [address] 75y, M Registration Date/Time: 08/23/2016 acute CHF exacerbation acute bilateral scrotal edema. (Electronically signed by Remi Coates Dr. 08/27/2016 11:33)
--- NOTE | 2016-08-27 11:33 | ED MAR SUMMARY ---
..... Medication Administration Record [facility] [address] [place] [address] Patient: ERYN ALVARADO Visit ID: [id number] 75y, M Weight: 72.5 kg Height/Length: 67 in BMI: 25.1 ALLERGIES: Azithromycin Given 22:27 08/23/2016 Livan Kidd R.N. Medication Administered: LASIX [IVP], Dose: 40 mg IVP over 5 minute(s), Site: #1 right AC. Medication Ordered: Lasix IV 40 mg (NOW).
--- NOTE | 2016-08-27 11:33 | ED MED RECONCILIATION SUMMARY ---
Patient: ERYN ALVARADO Medication Reconciliation Report [facility] VisitID: [id number] [address] [place] [address] 75y, M Registration Date/Time: 08/23/2016 Weight: 72.5 kg Height/Length: 67 in. BMI: 25.1 ALLERGIES: Azithromycin The patient's Home Medications are listed below: THE FOLLOWING MEDICATIONS NEED TO BE RECONCILED: Aspir-81 Oral B-12 Oral Carvedilol Oral (25 mg) 1 tablet, 2 x daily D3 Flovent HFA Inhalation (110 mcg/act) 2 puffs , 2x a day Lasix Oral 40 mg, daily Losartan Potassium Oral 50 mg, daily Simvastatin Oral 20 mg, daily Spironolactone Oral 25 mg, daily Ventolin HFA Inhalation (108 (90 Base) mcg/act) 2 puffs every 4 hours as needed for wheezing , states he hasn't been using lately Xarelto Oral (15 mg), daily The source(s) of the original Home Medication information: Not obtained. The following Medications were given to the patient in the Emergency Department: Lasix [IVP] IVP 40 mg, administered: 08/23/2016 10:27:00 PM The following Medications were prescribed to the patient: None.
--- NOTE | 2016-08-27 11:33 | ED MAR SUMMARY ---
..... Medication Administration Record [facility] [address] [place] [address] Patient: ERYN ALVARADO Visit ID: [id number] 75y, M Weight: 72.5 kg Height/Length: 67 in BMI: 25.1 ALLERGIES: Azithromycin Given 22:27 08/23/2016 Livan Kidd R.N. Medication Administered: LASIX [IVP], Dose: 40 mg IVP over 5 minute(s), Site: #1 right AC. Medication Ordered: Lasix IV 40 mg (NOW).
--- NOTE | 2016-08-27 11:33 | ED DISCHARGE INSTRUCTIONS ---
Patient: ERYN ALVARADO General Instructions [facility] VisitID: [id number] [address] [place] [address] 75y, M Registration Date/Time: 08/23/2016 acute CHF exacerbation acute bilateral scrotal edema. (Electronically signed by Remi Coates Dr. 08/27/2016 11:33)
--- NOTE | 2016-08-27 11:33 | ED MED RECONCILIATION SUMMARY ---
Patient: ERYN ALVARADO Medication Reconciliation Report [facility] VisitID: [id number] [address] [place] [address] 75y, M Registration Date/Time: 08/23/2016 Weight: 72.5 kg Height/Length: 67 in. BMI: 25.1 ALLERGIES: Azithromycin The patient's Home Medications are listed below: THE FOLLOWING MEDICATIONS NEED TO BE RECONCILED: Aspir-81 Oral B-12 Oral Carvedilol Oral (25 mg) 1 tablet, 2 x daily D3 Flovent HFA Inhalation (110 mcg/act) 2 puffs , 2x a day Lasix Oral 40 mg, daily Losartan Potassium Oral 50 mg, daily Simvastatin Oral 20 mg, daily Spironolactone Oral 25 mg, daily Ventolin HFA Inhalation (108 (90 Base) mcg/act) 2 puffs every 4 hours as needed for wheezing , states he hasn't been using lately Xarelto Oral (15 mg), daily The source(s) of the original Home Medication information: Not obtained. The following Medications were given to the patient in the Emergency Department: Lasix [IVP] IVP 40 mg, administered: 08/23/2016 10:27:00 PM The following Medications were prescribed to the patient: None.
== END 2016-08-25 15:13 | disposition home or self-care (01) | DRG 293 ==
LOC: ED SRH 18:33 → ACUTE2 SRH 22:20 → TRANS SRH 22:20 → ACUTE2 SRH 22:20
PROVIDERS: ADMIT Student in an Organized Health Care Education/Training Program
DX: I11.0 Hypertensive heart disease with heart failure (principal); I50.33 Acute on chronic diastolic (congestive) heart failure; N50.89 Other specified disorders of the male genital organs; I48.91 Unspecified atrial fibrillation; Z79.01 Long term (current) use of anticoagulants; G47.33 Obstructive sleep apnea (adult) (pediatric); D64.9 Anemia, unspecified

== ENCOUNTER 2016-09-02 10:07 | Outpatient (CLI) | payer OTHER ==
[~2016-09-02 10:07] MED LIST changes: +CARVEDILOL25 MG PO; +COZAAR25 MG PO; +FUROSEMIDE20 MG PO; +SPIRONOLACTONE25 MG PO; +XARELTO10 MG PO
== END 2016-09-02 23:00 ==
LOC: LAB SRH 10:07
DX: N28.9 Disorder of kidney and ureter, unspecified (principal); I50.9 Heart failure, unspecified
CPT/HCPCS: 90047; 90074

== ENCOUNTER 2016-09-02 10:56 | Day surgery (SDC) | payer OTHER ==
--- NOTE | 2016-09-02 14:57 | Provider's Discharge Care Plan ---
Problem, Goal, Plan Problem List 1. Gastritis
--- NOTE | 2016-09-02 14:57 | Provider's Discharge Care Plan ---
Problem, Goal, Plan Problem List 1. Gastritis
--- NOTE | 2016-09-02 15:50 | OPERATIVE REPORT ---
DATE OF SURGERY: 09/02/2016 SURGEON: Bandar Talamantes MD PREOPERATIVE DIAGNOSIS: 1. Dysphagia POSTOPERATIVE DIAGNOSES: 1. Esophagitis 2. Gastritis PROCEDURE PERFORMED: 1. Esophagogastroduodenoscopy with biopsies and dilation ANESTHESIA: Total IV general. INDICATIONS: The patient is a 75-year-old man with ongoing dysphagia as well as continuous hoarseness. He relates the hoarseness to previous aortic surgery in 2009. He reports solid-food dysphagia as well as occasional regurgitation. SURGICAL TECHNIQUE: The patient was taken to the endoscopy suite, where total IV general was administered and the patient was placed in the left lateral decubitus position. A well-lubricated endoscope was inserted down the esophagus and stomach under direct vision. There was no resistance to passing the scope. The lower stomach was erythematous and fairly bumpy, but without a specific suspicious lesion. The duodenum was entered and was normal. On withdrawal, biopsies were taken from the lumpy part of the stomach and submitted for histopathology. This appeared to represent gastritis. A single biopsy was also submitted for Helicobacter testing. A retroflexed view was unremarkable. On withdrawal, the squamocolumnar junction was examined, and it appeared this was somewhat irregular, with linear erosions suggestive of erosive esophagitis, with some stenosis. Several biopsies were taken from the squamocolumnar junction, following which a variable-diameter dilating balloon was passed. It was inflated first to 15 mm without much resistance and then gradually taken up to 18 mm. It was deflated, and the GE junction site looked fine. The rest of the esophagus was normal, and the patient left in good condition. In summary, this patient has gastritis and duodenitis and, depending on the results of his biopsy, may be considered for medical treatment. It remains unclear to what degree he has esophagogastric narrowing.
[2016-09-02 16:00] VITALS: BP 137/98
== END 2016-09-02 16:51 | disposition home or self-care (01) ==
LOC: OR SRH 10:56 → SCU SRH 10:57 → OR SRH 12:15
PROVIDERS: Surgery
PROC: 0DB68ZX Excision of Stomach, Via Natural or Artificial Opening Endoscopic, Diagnostic (ICD-10-PCS; principal; 2016-09-02 12:15)
PROC: 0DB38ZX Excision of Lower Esophagus, Via Natural or Artificial Opening Endoscopic, Diagnostic (ICD-10-PCS; principal; 2016-09-02 12:15)
PROC: 0D748ZZ Dilation of Esophagogastric Junction, Via Natural or Artificial Opening Endoscopic (ICD-10-PCS; principal; 2016-09-02 12:15)
DX: K20.9 Esophagitis, unspecified (principal); K29.70 Gastritis, unspecified, without bleeding; Z79.82 Long term (current) use of aspirin; I48.91 Unspecified atrial fibrillation; I10 Essential (primary) hypertension
CPT/HCPCS: 29229; 29240; 50004; 60001; 82730; 82943; 83526; 90705; 94060; 95059

== ENCOUNTER 2016-09-25 12:23 | Emergency (ER) | payer OTHER ==
--- NOTE | 2016-09-25 13:44 | DIAGNOSTIC IMAGING REPORT ---
PROCEDURE: CT THORAX ABD PELVIS W/O CONT CLINICAL INDICATION: Abdominal and chest pain. History of surgery for thoracic aortic dissection. TECHNIQUE: Noncontrast axial images with sagittal and coronal reformations. Intravenous contrast was not utilized due to compromised renal status ( creatinine 2.0) COMPARISON: Comparison is made to CT thorax (12/15/2008) and CT abdomen and pelvis (08/02/2009). FINDINGS: THORAX: There are postoperative changes suggesting prior repair of aortic dissection (metal coils/suture). 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 Status post median sternotomy. Marked cardiomegaly with marked mitral enlargement. There is a small amount of air within the right atrium and main pulmonary artery. There is chronic bilateral and basilar parenchymal lung scarring with calcified pleural plaques. Mild to moderate degenerative changes of the thoracic spine. ABDOMEN: There is a large dissecting thoracic aortic aneurysm (6.0 x 5.8 x 6.0 cm), lower abdominal aorta (9.5 cm longitudinal) without rupture. 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 There is a degenerating /calcified hemangioma in the medial left lobe of the liver. Liver is otherwise normal. Gallbladder appears partially decompressed. Spleen and pancreas are normal. Kidneys are atrophic (right 8.5 cm, left 9.0 cm). There is a 2 cm exophytic mass lateral to the right kidney has decreased (previously 4.0 cm). Moderate dextroscoliosis and marked degenerative changes of the lumbar spine. 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 Moderate distention of the urinary bladder. IMPRESSION: 1. Postoperative changes consistent with repair of thoracic aortic aneurysm. 2. 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 3. Marked cardiomegaly with mitral enlargement. 4. Asbestosis. 5. Bilateral renal atrophy (right 8.5 cm, left 9.0 cm). 6. Decreasing size of 2 cm benign exophytic mass lateral to the right kidney (previously 4.0 cm). 7. Involuting hemangioma in the left lobe of the liver. 8. Moderate distention of the urinary bladder. 9. Findings discussed with Dr. Luis Pelletier. All CT scans at this facility use dose modulation, iterative reconstruction, and/or weight-based dosing when appropriate to reduce radiation dose to as low as reasonably achievable.
--- NOTE | 2016-09-25 16:02 | ED NURSING NOTES ---
Clinical Report - Nurses [facility] [address] [place] [address] 09/25/2016 12:27 Patient: ERYN ALVARADO TRIAGE Triage time 12:28. --12:29 Nayeli Fischer R.N. 12:28 09/25/16. BP: 76/43 taken on the right arm. --12:29 Nayeli Fischer R.N. Acuity: LEVEL 2. Chief Complaint: (Hypotension with Hx of AAA). --12:33 Nayeli Fischer R.N. 12:50 09/25/16. BP: 79/43. HR: 93. RR: 22. O2 saturation: 95%. Temp: 97.7 F. --12:52 Nayeli Fischer R.N. 12:32 09/25/16. BP: 79/43 taken on the left arm. --12:53 Nayeli Fischer R.N. Weight: 68 kg stated. Height/Length: 67 inches Per Patient. BMI: 23.5. --12:31 Nayeli Fischer R.N. Medications SIMVASTATIN 20 MG DAILY. --12:56 Nayeli Fischer R.N. Carvedilol 25 mg bid. --12:56 Nayeli Fischer R.N. VTAMIN D3 4000 UNITS DAILY. --12:56 Nayeli Fischer R.N. Losartan 50 mg daily. --12:56 Nayeli Fischer R.N. B12 1000 MCG DAILY. --12:56 Nayeli Fischer R.N. FLUTICASONE 2 PUFFS BID PRN. --12:57 Nayeli Fischer R.N. VENTOLIN HFA 108 MCG 2 PUFFS Q4H PRN. --12:57 Nayeli Fischer R.N. APIRIN 81 MG DAILY. --12:57 Nayeli Fischer R.N. SPIRONOLACTONE 25 MG DAILY. --12:57 Nayeli Fischer R.N. FURSEOMIDE 40 MG A.M., 20 MG P.M.. --12:58 Nayeli Fischer R.N. XARELTO 15 MG DAILY. --12:59 Nayeli Fischer R.N. Allergies No Known Drug Allergy. --12:31 Nayeli Fischer R.N. History Arrived by EMS, and (m104). --12:29 Nayeli Fischer R.N. The patient has had weakness. ( jaundice). 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 See EMS report. PAST MEDICAL HX: Hypertension. ( kidney failure, known AAA,). SOCIAL HX: Never smoker. No alcohol use or drug use. --12:33 Nayeli Fischer R.N. Primary physician (Sherron). --13:28 Nayeli Fischer R.N. ( states she called 911 after pt. reporting he was too weak to lift his head.). --13:41 Nayeli Fischer R.N. Interventions ID band on patient. --12:33 Nayeli Fischer R.N. PHYSICAL ASSESSMENT To room via stretcher. ( radial pulses palpable,). GENERAL / NEURO / PSYCH: Appears in pain. Ewing Coma Scale: 15- eyes open spontaneously (4); best verbal response- oriented x 4 (5); best motor response- obeys commands (6). He has had weakness. RESPIRATORY: Respirations not labored. Breath sounds within normal limits. GI / : Bowel sounds within normal limits. SKIN: Skin is slightly diaphoretic. --13:24 Nayeli Fischer R.N. CVS: Pulses: right radial 2+, left radial 2+, left dorsalis pedis 2+ and right posterior tibial 2+. Pulses within normal limits. GI / : ( pt. reports nontender abdomen, though guards with movement or palpation). --13:26 Nayeli Fischer R.N. NURSING PROGRESS NOTES 12:37 09/25/2016 Started bag #1 1000 mL IV Fluids IV NS (Saline); bolus of 1000 mL over 1 hour(s) via site #1 --13:02 Nayeli Fischer R.N. 12:37 09/25/16. Patient transported to CT by stretcher with nurse and tech. --12:37 Nayeli Fischer R.N. 12:57 09/25/2016 Started 6.8 mcg of Levophed (Norepinephrine Bitartrate) Drip IV in bag #1 250 mL; at 25.5 mL/hr over 1 hour(s) via site #2; IV patency established. IV site checked: no pain, redness, or swelling. IV flushed thoroughly pre- and post-medication administration. --13:01 Nayeli Fischer R.N. 13:00 09/25/2016 Site #1 started prior to arrival by EMS via IV in the left antecubital space with an 16g angiocath. --13:00 Nayeli Fischer R.N. 13:00 09/25/2016 Site #2 started via IV in the right forearm with an 18g angiocath. --13:00 Nayeli Fischer R.N. late entry - 12:50- Lab called by KAILA Galvin for 2 units stat. --13:02 Nayeli Fischer R.N. late entry - 12:50: Patient placed on defib pads/monitor. Second line initiated. Verbal order for levophed given. --13:04 Nayeli Fischer R.N. ( 1257: Levophed initiated at 6.8 mcg/minute, 1302: increased to 13.6 mcg/minute for a pressure of 70/70. 1305: MAP of 75 achieved, levo dropped to 10 mcg/minute.). --13:06 Nayeli Fischer R.N. ( Lab called, blood is ready.). --13:07 Nayeli Fischer R.N. ( verbal order for LR at 200 ml/hr after 3rd NS infused.). --13:09 Nayeli Fischer R.N. 13:10 09/25/2016 Started bag #1 200 mL IV Fluids IV LACTATED RINGERS; at 200 mL/hr over 5 hour(s) via site #1 --13:10 Nayeli Fischer R.N. ( Blood to room, cross checked x 2 RN). --13:13 Nayeli Fischer R.N. <<STRICKEN ENTRY-- ( 2 units of O+ blood initiated, 1 in each IV site. Unit [id number] running wide open in RFA. w [id number] in LAC 200 ml/hr.). --13:16 Nayeli Fischer R.N. --END STRIKE>> Correction --13:35 Nayeli Fischer R.N. ( Levophed decreased to 7 mcg/minute for MAP of 84). --13:17 Nayeli Fischer R.N. 13:08 09/25/16. BP: 118/57. --13:18 Nayeli Fischer R.N. ( levophed to 6 mcg/minute). --13:18 Nayeli Fischer R.N. 13:04 09/25/16. BP: 120/64. --13:19 Nayeli Fischer R.N. 12:58 09/25/16. BP: 70/40. --13:19 Nayeli Fischer R.N. 12:48 09/25/16. BP: 91/52. --13:19 Nayeli Fischer R.N. 13:20 09/25/16. BP: 121/68. HR: 83. RR: 18. O2 saturation: 96% on non-rebreather at 15 liters/minute. Temp: 97.7 F. --13:21 Nayeli Fischer RHankN. --13:21 Nayeli Fischer RHankNHank ( 1320: Levophed discontinued for pressure 121/68 and MAP 79). --13:23 Nayeli Fischer R.N. <<STRICKEN ENTRY-- ( at bedside, ambulance in baby awaiting transfer. 1:1 critical care at all times). --13:26 Nayeli Fischer R.N. --END STRIKE>> Correction --13:46 Nayeli Fischer R.N. ( levophed started at 6 mcg/minutes for map of 71 and dropping.). --13:27 Nayeli Fischer RHankN. 13:23 09/25/16. BP: 110/59. --13:29 Nayeli Fischer R.N. 13:29 09/25/16. BP: 109/57. HR: 66. RR: 13. O2 saturation: 100% on non-rebreather at 15 liters/minute. --13:30 Nayeli Fischer R.N. ( Left AC blood placed on pressure bag. Right forearm at 200 ml/hr levophed at 1334 down to 4 mcg/min for MAP of 79). --13:35 Nayeli Fischer R.N. 1316: LAC blood unit [id number]- running at 125. RFA unit [id number] running wide open. --13:37 Nayeli Fischer R.N. --13:37 Nayeli Fischer R.N. 13:37 09/25/16. BP: 107/64. HR: 69. RR: 16. O2 saturation: 97% on non-rebreather at 10 liters/minute. Additional comments: MAP 75. --13:38 Nayeli Fischer R.N. ( levophed titrated to 3.5 mcg/hr for MAP of 79). --13:38 Nayeli Fischer R.N. 13:32 09/25/16. BP: 115/68. --13:39 Nayeli Fischer R.N. late entry -1320 Pena catheter inserted. --13:41 Nayeli Fischer R.N. 13:44 09/25/16. BP: 111/66. HR: 68. --13:44 Nayeli Fischer R.N. 13:44 09/25/16. BP: 111/61. HR: 69. RR: 15. End tidal CO2: 32 mmHg. --13:45 Nayeli Fischer R.N. ( levophed 3.1 for MAP of 73). --13:45 Nayeli Fischer R.N. ( 1348: EKG at bedside). --13:49 Nayeli Fischer R.N. 13:46 09/25/16. O2 saturation: 100%. End tidal CO2: 30 mmHg. via face mask. --13:49 Nayeli Fischer R.N. EKG time: (13:49). EKG was performed by a tech and shown to the ED physician. --13:49 Nayeli Fischer R.N. ( RLF blood increased to 300 ml/hr.). --13:50 Nayeli Fischre R.N. 13:48 09/25/16. BP: 107/64 (regular adult cuff) taken on the left arm. HR: 65. RR: 18. O2 saturation: 98% on face mask at 3 liters/minute. Pain level now: 0/10. --13:59 Nicole Townsend R.N. 13:53 09/25/16. BP: 105/51 (small adult cuff) taken on the left arm, while lying. HR: 62. RR: 17. O2 saturation: 98% on nasal cannula at 2 liters/minute. --13:59 Nicole Townsend R.N. 13:59 09/25/16. BP: 98/53. HR: 70. RR: 14. O2 saturation: 96% on nasal cannula at 2 liters/minute. --14:00 Nicole Townsend R.N. 14:04 09/25/16. BP: 110/59 (regular adult cuff) taken on the left arm, while lying. HR: 71. RR: 13 (regular). O2 saturation: 99% on nasal cannula at 2 liters/minute. --14:06 Nicole Townsend R.N. 14:09 09/25/16. BP: 112/60 (regular adult cuff) taken on the left arm, while lying. HR: 67. RR: 16 (regular). O2 saturation: 98% on nasal cannula at 2 liters/minute. --14:10 Nicole Townsend R.N. 14:13 09/25/16. BP: 104/55 (regular adult cuff) taken on the left arm, while lying. HR: 74. RR: 17 (regular). O2 saturation: 97% on nasal cannula at 2 liters/minute. Temp: 98.1 F (oral). --14:15 Nicole Townsend R.N. 14:16 09/25/16. End tidal CO2: 30 mmHg; with normal waveform; adult colorimetric detector used. --14:16 Nicole Townsend R.N. 14:19 09/25/16. BP: 107/53 (regular adult cuff) taken on the left arm, while lying. HR: 67. RR: 17. O2 saturation: 95% on nasal cannula at 2 liters/minute. End tidal CO2: 30 mmHg; adult colorimetric detector used. --14:20 Nicole Townsend R.NHank 14:26 09/25/16. BP: 102/55 (regular adult cuff) taken on the left arm, while lying. HR: 67. RR: 14. O2 saturation: 97% on nasal cannula at 2 liters/minute. --14:26 Nicole Townsend R.NHank 14:37 09/25/16. BP: 117/63 (regular adult cuff) taken on the left arm, while lying. HR: 68. RR: 19. O2 saturation: 94% on nasal cannula at 2 liters/minute. --14:37 Nicole Townsend R.NHank 14:40 09/25/16. BP: 98/57 (regular adult cuff) taken on the left arm, while lying. HR: 67. RR: 17 (regular). O2 saturation: 94% on nasal cannula at 2 liters/minute. --14:41 Nicole Townsend R.NHank 14:41 09/25/16. BP: 98/57 (regular adult cuff) taken on the left arm, while lying. HR: 72. RR: 16 (regular). O2 saturation: 97% on nasal cannula at 2 liters/minute. End tidal CO2: 29 mmHg. --14:43 Nicole Townsend R.NHank 14:44 09/25/16. BP: 102/56 (regular adult cuff) taken on the left arm, while lying. HR: 72. RR: 16. O2 saturation: 94% on nasal cannula at 2 liters/minute. --14:46 Nicole Townsend R.NHank 14:47 09/25/16. RR: 16. End tidal CO2: 31 mmHg; adult colorimetric detector used. --14:47 Nicole Townsend R.NHank 14:51 09/25/16. BP: 99/50. HR: 69. RR: 18. O2 saturation: 98%. --14:52 Nicole Townsend R.NHank 14:55 09/25/16. BP: 90/60. HR: 72. RR: 18 (regular). O2 saturation: 99% on nasal cannula at 2 liters/minute. --14:59 Nicole Townsend R.NHank 14:59 09/25/16. BP: 95/53 (regular adult cuff) taken on the left arm, while lying. HR: 78. RR: 18 (regular). O2 saturation: 98%. --15:00 Nicole Townsend R.N. 13:30 09/25/2016 IV Fluids IV NS Discontinued: bag #1 infused. Total amount infused: 1000 mL. IV patency established. IV site checked: no pain, redness, or swelling. IV flushed thoroughly. --15:03 Nicole Townsend R.N. 14:01 09/25/16. ( #872 blood is completed). --14:01 Nicole Townsend R.N. 14:27 09/25/16. ( Urine pale yellow, drained 1200cc). --14:27 Nicole Townsend R.N. late entry - 14:30 09/25/16. ( [facility] arrived). --14:50 Nicole Townsend R.N. 14:37 09/25/16. ( Guiac positive). --14:37 Nicole Townsend R.NHank 14:40 09/25/16. ( Blood #632 completed, IV site flushed with NS). --14:40 Nicole Townsend R.NHank 14:49 09/25/16. ( ETCO2 DC). --14:49 Nicole Townsend R.NHank 15:04 09/25/16. BP: 101/50 (regular adult cuff) taken on the left arm, while lying. HR: 75. RR: 18 (regular). O2 saturation: 98% on nasal cannula at 2 liters/minute. --15:05 Nicole Townsend R.NHank 15:09 09/25/16. BP: 105/56 (regular adult cuff) taken on the left arm, while lying. HR: 66. RR: 18. O2 saturation: 97% on nasal cannula at 2 liters/minute. --15:10 Nicole Townsend R.NHank 15:18 09/25/16. BP: 103/48 (regular adult cuff) taken on the left arm, while lying. HR: 71. RR: 18. --15:18 Nicole Townsend R.N. 15:33 09/25/16. ( Transportation route has changed to air lift. Patient placed back on IV fluids and monitors). --15:33 Nicole Townsend R.N. 15:33 09/25/16. BP: 127/68 (regular adult cuff) taken on the left arm, while lying. HR: 73. RR: 18. O2 saturation: 95% on nasal cannula at 3 liters/minute. --15:33 Nicole Townsend R.N. 15:35 09/25/16. ( Another 600cc pale yellow urine drainage noted). --15:35 Nicole Townsend R.N. 15:41 09/25/16. BP: 107/62 (regular adult cuff) taken on the left arm, while lying. RR: 18. O2 saturation: 98% on nasal cannula at 3 liters/minute. --15:44 Nicole Townsend R.N. 15:46 09/25/16. ( Bed ready for Patient at [facility] on . Report called to [phone]). --15:46 Nicole Townsend R.N. 16:09/25/16. Care transferred and report given (KAILA [facility] ICU at [facility]). --16:01 Nicole Townsend R.N. 16:09/25/16. BP: 118/55 (regular adult cuff) taken on the left arm, while lying. HR: 69. RR: 18. O2 saturation: 97% on nasal cannula at 3 liters/minute. --16:01 Nicole Townsend R.N. 16:25 09/25/16. BP: 122/66 (regular adult cuff) taken on the left arm, while lying. HR: 86. RR: 18. O2 saturation: 96% on nasal cannula at 3 liters/minute. --16:26 Nicole Townsend R.N. DISPOSITION / DISCHARGE <<STRICKEN ENTRY-- 16:30 09/25/2016 Levophed Drip IV Discontinued: bag #3 discontinued upon transfer. Total amount infused: 500 mL. IV patency established. IV site checked: no pain, redness, or swelling. IV flushed thoroughly. --16:31 Nicole Townsend R.N. --END STRIKE>> Correction. --16:32 Nicole Townsend R.N. 16:30 09/25/2016 Levophed Drip IV Discontinued: bag #1 discontinued upon transfer. Total amount infused: 100 mL. IV patency established. IV site checked: no pain, redness, or swelling. IV flushed thoroughly. --16:32 Nicole Townsend R.N. 16:33 09/25/2016 Site #[address] upon transfer; patent, no pain and no signs of infection or infiltration. Good blood return present. Flushed with 10 mL saline; flushes easily. --16:33 Nicole Townsend R.N. 16:33 09/25/2016 IV Fluids IV LACTATED RINGERS Discontinued: bag #2 discontinued upon transfer. Total amount infused: 500 mL. IV patency established. IV site checked: no pain, redness, or swelling. IV flushed thoroughly. --16:33 Nicole Tonwsend R.N. 16:34 09/25/2016 Site #[address] upon transfer; patent, no pain and no signs of infection or infiltration (Used on transfer). --16:34 Nicole Townsend R.N. Condition at departure: improved. Transferred to [facility]. Summary of care provided to transport team, patient, family and transfer facility via paper, fax and digital media (16:34 Sep 25 2016). ( Report given to flight crew, Patient loaded on gurney with all monitors and fluids, he is on 3L NC). --16:34 Nicole Townsend R.N. Transported via helicopter by nurse and transport team with monitor, IV and O2. --16:35 Nicole Townsend R.N. Bed obtained and ready (16:2016). --16:35 Nicole Townsend R.N. Locked/Released at 09/25/2016 16:36 by Nicole Townsend R.N.
--- NOTE | 2016-09-25 16:02 | ED ORDER SUMMARY ---
..... Patient: ERYN ALVARADO OrderSheet [facility] VisitID: [id number] [place] [address] 75y, M Registration Date/Time: 09/25/2016 ORDER SHEET Weight: 68.0 kg (stated) Allergies: No Known Drug Allergy GENERAL ORDERS: CT Thorax wo Cont Urgent (12:30 09/25/2016 Deloris De La Garza) (Ack 12:34 Ramila) (12:41 ALVERTOoerner) CT Abd/Pel wo Cont (H/O AAA, ) Urgent (12:30 09/25/2016 Deloris De La Garza) (Ack 12:34 Ramila) (12:41 ALVERTOoerner) CBC w Diff Urgent (12:32 09/25/2016 Deloris De La Garza) (Ack 12:34 Ramila) (13:22 LSullivan R.N.) CMP Urgent (12:32 09/25/2016 Deloris De La Garza) (Ack 12:34 Ramila) (13:22 LSullivan R.N.) D-Dimer Urgent (12:32 09/25/2016 Deloris De La Garza) (Ack 12:34 Ramila) (13:22 LSullivan R.N.) Type & Screen Urgent (12:32 09/25/2016 Deloris De La Garza) (Ack 12:34 Ramila) (14:12 JSanders R.N.) Type & Cross (severe anemia) (compatability) Urgent (12:45 09/25/2016 Deloris De La Garza) (Cancelled: Physician Order12:48 Deloris De La Garza) (Ack 12:48 Ramila) Transfuse PRBCs (12:46 09/25/2016 Deloris De La Garza) (Ack 12:48 Ramila) (13:22 LSullivan R.N.) NPO (13:06 09/25/2016 Deloris De La Garza) (13:23 LSullivan R.N.) Pena Catheter (13:23 09/25/2016 Anivalivan R.N. verbal order read back to Deloris De La Garza) (13:23 LSullivan R.N.) PT with INR Urgent (14:02 09/25/2016 Deloris De La Garza) (Ack 14:06 ALVERTOoerfabiola) (14:06 ALVERTOoerner) PTT Urgent (14:02 09/25/2016 Deloris De La Garza) (Ack 14:06 ALVERTOoerner) (14:06 KHoerner) MEDICATION ORDERS: Levophed Drip IV : 0.1-0.5 mcg/kg/min (HIGH ALERT MEDICATION, NOW) (Titrate to MAP of 70) (12:53 09/25/2016 Deloris De La Garza) (13:01 SStone R.N.) IV FLUIDS: IV NS : initial bolus none -, then 1000 mL/hr for X1 (NOW) (12:30 09/25/2016 Deloris De La Garza) (13:02 SStone R.N.) IV Lactated Ringers : initial bolus none -, then 200 mL/hr (NOW) (13:08 09/25/2016 Deloris De La Garza) (13:10 SStone R.N.) ORDER SHEET NOTES: [Electronically signed by Nicole Townsend R.N. (16:36 09/25/2016)] [Electronically signed by Luis Pelletier Dr. (17:09 09/25/2016)] [Electronically locked/signed by Nicole Townsend R.N. (16:36 09/25/2016)]
--- NOTE | 2016-09-25 16:02 | ED CLINICAL REPORT ---
Clinical Report - Physicians/Mid Levels [facility] [address] [place] [address] 09/25/2016 12:27 Patient: ERYN ALVARADO Time Seen: 12:29; initial patient contact. Historian- patient and EMS personnel. History limited by severe distress. Physical Exam limited by severe distress. HISTORY OF PRESENT ILLNESS Chief Complaint: ABDOMINAL PAIN. This started today and is still present. It is described as "pain". No radiation. It is described as generalized in location. At its maximum, severity described as moderate. When seen in the E.D., severity described as moderate. No nausea, vomiting or diarrhea. Similar symptoms previously: Twice. Recent medical care: The patient was seen recently in a clinic. REVIEW OF SYSTEMS No abnormal bleeding, chest pain, difficulty breathing or alteration in mental status. He has had abdominal pain. "jaundiced". All systems otherwise negative, except as recorded above. PAST HISTORY Congestive Heart Failure. Dehydration. Influenza. Facial Fracture. Head Injury. Laceration. Fall. Hearing Loss. Renal Failure. Aortic Disease. Valvular Heart Disease. Cough. Hypertension. Heart Disease. Healing Wound. Cellulitis Check. Anemia. Hematoma. Cellulitis. Allergic Reaction. Immunizations. Home oxygen. Compartment Syndrome. Bronchitis. Bronchospasm. Dyspnea. Cardiomegaly. Aortic Dissection. Dialysis [Resolved]. - SURGERIES: Cataract Surgery. Heart surgeries multiple. Hernia Repair. Left Knee surgery. Lung surgeries. Mitral valvuloplasty. Peritoneal dialysis. Medications: XARELTO 15 MG DAILY. FURSEOMIDE 40 MG A.M., 20 MG P.M.. SPIRONOLACTONE 25 MG DAILY. APIRIN 81 MG DAILY. VENTOLIN HFA 108 MCG 2 PUFFS Q4H PRN. FLUTICASONE 2 PUFFS BID PRN. B12 1000 MCG DAILY. Losartan 50 mg daily. VTAMIN D3 4000 UNITS DAILY. Carvedilol 25 mg bid. SIMVASTATIN 20 MG DAILY. Allergies: No Known Drug Allergy. SOCIAL HISTORY Former smoker. Occasional alcohol use. No drug use. ADDITIONAL NOTES The nursing notes have been reviewed with agreement regarding the chief complaint, PMH and patient medications and allergies. PHYSICAL EXAM Vital Signs: 09/25/2016 12:50 BP: 79/43. HR: 93. RR: 22. O2 saturation: 95%. Temp: 97.7 F. Have been reviewed. Hypotensive. Heart rate normal. Tachypneic. Temperature normal. Oxygen saturation normal. Appearance: Appears to be in pain. Patient in moderate distress. Eyes: Eyes normal inspection. ENT: Dry mucous membranes present. Neck: No JVD. CVS: Normal heart rate and rhythm. Heart sounds normal. Respiratory: No respiratory distress. Breath sounds normal. Abdomen: Soft. Moderate tenderness diffusely with guarding present. Abnormal bowel sounds: diminished. No distention. (Difficult to determine pulsatile mass due to the pt dex abd wall muscles on exam.). Rectal: Strongly heme-positive stool; soni melena present in the stool; hemoccult quality assurance coach check passed. (POC test reference range: negative). Black stool. Rectal exam nontender. Skin: Moderate pallor. Cool skin. Extremities: Bilateral mild pitting edema of the lower extremities involving both ankles. Neuro: Oriented X 3. LABS, X-RAYS, AND EKG EKG: EKG time: (1351). Atrial fibrillation (narrow-complex) (ventricular rate 65). Normal QRS complex. Normal axis. Normal ST and T waves. Prolonged QTc (470). Prior EKG unavailable. The study has been interpreted contemporaneously by me. The study has been independently viewed by me. The EKG appears to be a good tracing. Interpretation time: 1351. Abdominal CT: 1. Postoperative changes consistent with repair of thoracic aortic aneurysm. 2. 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 3. Marked cardiomegaly with mitral enlargement. 4. Asbestosis. 5. Bilateral renal atrophy (right 8.5 cm, left 9.0 cm). 6. Decreasing size of 2 cm benign exophytic mass lateral to the right kidney (previously 4.0 cm). 7. Involuting hemangioma in the left lobe of the liver. 8. Moderate distention of the urinary bladder. Study type: abdomen and pelvis. Abdominal CT performed without contrast. The study was independently viewed by me, interpreted by the radiologist and discussed with the radiologist. Interpretation time: 13:52. Chest CT: (1. Postoperative changes consistent with repair of thoracic aortic aneurysm. 2. 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 3. Marked cardiomegaly with mitral enlargement. 4. Asbestosis. 5. Bilateral renal atrophy (right 8.5 cm, left 9.0 cm). 6. Decreasing size of 2 cm benign exophytic mass lateral to the right kidney (previously 4.0 cm). 7. Involuting hemangioma in the left lobe of the liver. 8. Moderate distention of the urinary bladder.). Chest CT performed without contrast. Prior studies were not available for comparison. The study was interpreted by the radiologist and discussed with the radiologist. Interpretation time: 13:52. Laboratory Tests: CBC w Diff: (EMIR: 09/25/2016 12:29) ( MsgRcvd 09/25/2016 13:57) Final results Test Result Flag Units (Reference) WHITE BLOOD COUNT 6.5 K/uL (4.5-11.5) RED BLOOD COUNT 1.44 *L M/uL (4.50-5.90) HEMOGLOBIN 4.6 *L gm/dL (13.5-17.5) CRITICAL RESULTS CALLEDCalled to DR SORIANO 09/25/16 1243Were 2 patient identifiers used? YWas the result read back? Y HEMATOCRIT 14.1 *L % (41.0-53.0) CRITICAL RESULTS CALLEDCalled to DR SORIANO 09/25/16 1243Were 2 patient identifiers used? YWas the result read back? Y MEAN CELL VOLUME 98 fL (80-100) MEAN CORPUSCULAR HGB 32 pg (26-34) MEAN CORPUSCULAR HGB CONC 33 g/dL (31-37) RED CELL DISTRIBUTION WIDTH 16.1 H % (11.6-14.8) PLATELET COUNT 147 L K/uL (150-400) NEUTROPHIL % 79.2 H % (50-75) LYMPH % 10.3 L % (25-40) MONO % 8.4 % (3-14) EOSINOPHIL % 1.7 % (0-4) BASOPHIL % 0.4 % (0-2) RBC MORPHOLOGY 3+ ANISOCYTOSIS~~2+ HYPOCHROMIA~~1+ TEARDROP~~1+ POLYCHROMASIA PT with INR: (EMIR: 09/25/2016 12:29) ( [facility] 09/25/2016 14:11) Final results Test Result Flag Units (Reference) INR 3.0 H (0.8-1.2) Low Intensity Therapy: INR 1.5-2.0 PT range 18.5-23.1Mod.Intensity Therapy: INR 2.0-3.0 PT range 23.1-31.5High Intensity Therapy: INR 2.5-3.5 PT range 27.4-35.5High Intensity Therapy 2: INR 3.0-4.0 PT range 31.5-39.3 APTT 44 H SECONDS (24-34) [id number]: (EMIR: 09/25/2016 12:29) ( [facility] 09/25/2016 12:53) Final results Test Result Flag Units (Reference) D-DIMER QUANTITATIVE 1.06 H ug/mLFEU (0.27-0.52) The primary value of this quantitative assay relates toits negative predictive value (i.e. exclusion) of pulmonaryembolism/deep vein thrombosis/DIC.Elevated levels of d-dimer may also occur with:, age, cancer, inflammation, liver disease,post-op, infection, hematoma, coronary disease, peripheralarteriopathy, bleeding disorders and thrombolytic treatment.Results should be correlated with other clinical andradiological data.Testing Methodology: Latex Immunoassay CMP: (EMIR: 09/25/2016 12:29) ( [facility] 09/25/2016 13:09) Final results Test Result Flag Units (Reference) GLUCOSE 130 H mg/dL (70-110) BUN 125 *H mg/dL (7-18) CRITICAL RESULTS CALLEDCalled to KAILA COLON IN ED 09/25/16 1308Were 2 patient identifiers used? YWas the result read back? Y CREATININE 2.0 H mg/dL (0.6-1.3) Estimated GFR 34.79 mL/min Estimated GFR- 42.17 mL/min Note: Persistent reduction over 3 months in eGFR<60 mL/min/1.73 m2 defines CKD. Patients with eGFR values>=60 mL/min/1.73 m2 may also have CKD if evidence ofpersistent proteinuria. Additional information may be foundat [email or web address].org. SODIUM 143 mmol/L (136-145) POTASSIUM 5.2 H mmol/L (3.5-5.1) CHLORIDE 110 H mmol/L (98-107) CARBON DIOXIDE 27 mmol/L (21-32) CALCIUM 7.7 L mg/dL (8.5-10.1) TOTAL PROTEIN 4.8 L g/dL (6.4-8.2) ALBUMIN 2.4 L g/dL (3.3-5.0) BILIRUBIN, TOTAL 0.6 mg/dL (0.0-1.0) ALKALINE PHOSPHATASE 68 U/L (46-116) AST (SGOT) 19 U/L (15-37) ALT (SGPT) 16 U/L (12-78) Type & Cross: (EMIR: 09/25/2016 12:29) ( MsgRcvd 09/25/2016 13:27) IP Test Result Flag Units (Reference) LEUKOREDUCED PACKED CELLS [id number] OP PC ISSUED 09/25/16 1325 [id number] OP PC ISSUED 09/25/16 1325 PATIENT BLOOD TYPE O Positive Above is a corrected result. Previously reported on ( MsgRcvd 09/25/2016 13:25) as: PATIENT BLOOD TYPE O Positive ANTIBODY SCREEN NEGATIVE Above is a corrected result. Previously reported on ( MsgRcvd 09/25/2016 13:) as: ANTIBODY SCREEN NEGATIVE . PROGRESS AND PROCEDURES Critical care performed (100 minutes). Time includes: direct patient care, patient reassessment, coordination of patient care, interpretation of data (laboratory data, pulse oximetry and prior electrocardiograms), review of patient's medical records, medical consultation, family consultation regarding treatment decisions and documentation of patient care- see progress notes. The patient required critical care due to the acute impairment of vital organ systems (cardiovascular, hematologic and renal) and a high probability of life threatening deterioration. Multiple emergent interventions were required to prevent life threatening deterioration. Discussed case with on-call health care provider, (call returned 14:10 Dr. Peck Vascular at , will review CT to determine where to send. call returned 14:[address] and agreed no rupture and will defer to director of restaurant.). Reviewed test results and need for additional work-up. Refers case to other health care provider. Discussed case with on-call health care provider, (call returned 15:22DrHank Brown Centerless Grinder Tender at [facility], will accept pt, direct admit amd prefers airlift.). Reviewed test results. Consult obtained from vascular surgery. Spoke keyana/ Nikita vascular ERVIN, due to thoracic and abdominal aneurysms and vascular surgeon scrubbed in a case and recommended transfer to . Case discussed. Disposition: Benefits, risks and alternatives to transfer explained to patient and family. Transferred to [facility]. Condition: stable. CLINICAL IMPRESSION Severe acute and chronic anemia associated with acute blood loss. Occult GI bleed with melena, hypotension and shock. 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 No rupture. Moderate acute and chronic renal failure. INSTRUCTIONS Follow-up: Blood pressure screening was not performed during this visit because the patient has an active diagnosis of hypertension. (Electronically signed by Luis Soriano Dr. 09/25/2016 17:09)
--- NOTE | 2016-09-25 16:02 | ED CLINICAL REPORT ---
Clinical Report - Physicians/Mid Levels [facility] [address] [place] [address] 09/25/2016 12:27 Patient: ERYN ALVARADO Time Seen: 12:29; initial patient contact. Historian- patient and EMS personnel. History limited by severe distress. Physical Exam limited by severe distress. HISTORY OF PRESENT ILLNESS Chief Complaint: ABDOMINAL PAIN. This started today and is still present. It is described as "pain". No radiation. It is described as generalized in location. At its maximum, severity described as moderate. When seen in the E.D., severity described as moderate. No nausea, vomiting or diarrhea. Similar symptoms previously: Twice. Recent medical care: The patient was seen recently in a clinic. REVIEW OF SYSTEMS No abnormal bleeding, chest pain, difficulty breathing or alteration in mental status. He has had abdominal pain. "jaundiced". All systems otherwise negative, except as recorded above. PAST HISTORY Congestive Heart Failure. Dehydration. Influenza. Facial Fracture. Head Injury. Laceration. Fall. Hearing Loss. Renal Failure. Aortic Disease. Valvular Heart Disease. Cough. Hypertension. Heart Disease. Healing Wound. Cellulitis Check. Anemia. Hematoma. Cellulitis. Allergic Reaction. Immunizations. Home oxygen. Compartment Syndrome. Bronchitis. Bronchospasm. Dyspnea. Cardiomegaly. Aortic Dissection. Dialysis [Resolved]. - SURGERIES: Cataract Surgery. Heart surgeries multiple. Hernia Repair. Left Knee surgery. Lung surgeries. Mitral valvuloplasty. Peritoneal dialysis. Medications: XARELTO 15 MG DAILY. FURSEOMIDE 40 MG A.M., 20 MG P.M.. SPIRONOLACTONE 25 MG DAILY. APIRIN 81 MG DAILY. VENTOLIN HFA 108 MCG 2 PUFFS Q4H PRN. FLUTICASONE 2 PUFFS BID PRN. B12 1000 MCG DAILY. Losartan 50 mg daily. VTAMIN D3 4000 UNITS DAILY. Carvedilol 25 mg bid. SIMVASTATIN 20 MG DAILY. Allergies: No Known Drug Allergy. SOCIAL HISTORY Former smoker. Occasional alcohol use. No drug use. ADDITIONAL NOTES The nursing notes have been reviewed with agreement regarding the chief complaint, PMH and patient medications and allergies. PHYSICAL EXAM Vital Signs: 09/25/2016 12:50 BP: 79/43. HR: 93. RR: 22. O2 saturation: 95%. Temp: 97.7 F. Have been reviewed. Hypotensive. Heart rate normal. Tachypneic. Temperature normal. Oxygen saturation normal. Appearance: Appears to be in pain. Patient in moderate distress. Eyes: Eyes normal inspection. ENT: Dry mucous membranes present. Neck: No JVD. CVS: Normal heart rate and rhythm. Heart sounds normal. Respiratory: No respiratory distress. Breath sounds normal. Abdomen: Soft. Moderate tenderness diffusely with guarding present. Abnormal bowel sounds: diminished. No distention. (Difficult to determine pulsatile mass due to the pt dex abd wall muscles on exam.). Rectal: Strongly heme-positive stool; soni melena present in the stool; hemoccult air quality engineer check passed. (POC test reference range: negative). Black stool. Rectal exam nontender. Skin: Moderate pallor. Cool skin. Extremities: Bilateral mild pitting edema of the lower extremities involving both ankles. Neuro: Oriented X 3. LABS, X-RAYS, AND EKG EKG: EKG time: (1351). Atrial fibrillation (narrow-complex) (ventricular rate 65). Normal QRS complex. Normal axis. Normal ST and T waves. Prolonged QTc (470). Prior EKG unavailable. The study has been interpreted contemporaneously by me. The study has been independently viewed by me. The EKG appears to be a good tracing. Interpretation time: 1351. Abdominal CT: 1. Postoperative changes consistent with repair of thoracic aortic aneurysm. 2. 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 3. Marked cardiomegaly with mitral enlargement. 4. Asbestosis. 5. Bilateral renal atrophy (right 8.5 cm, left 9.0 cm). 6. Decreasing size of 2 cm benign exophytic mass lateral to the right kidney (previously 4.0 cm). 7. Involuting hemangioma in the left lobe of the liver. 8. Moderate distention of the urinary bladder. Study type: abdomen and pelvis. Abdominal CT performed without contrast. The study was independently viewed by me, interpreted by the radiologist and discussed with the radiologist. Interpretation time: 13:52. Chest CT: (1. Postoperative changes consistent with repair of thoracic aortic aneurysm. 2. 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 3. Marked cardiomegaly with mitral enlargement. 4. Asbestosis. 5. Bilateral renal atrophy (right 8.5 cm, left 9.0 cm). 6. Decreasing size of 2 cm benign exophytic mass lateral to the right kidney (previously 4.0 cm). 7. Involuting hemangioma in the left lobe of the liver. 8. Moderate distention of the urinary bladder.). Chest CT performed without contrast. Prior studies were not available for comparison. The study was interpreted by the radiologist and discussed with the radiologist. Interpretation time: 13:52. Laboratory Tests: CBC w Diff: (EMIR: 09/25/2016 12:29) ( MsgRcvd 09/25/2016 13:57) Final results Test Result Flag Units (Reference) WHITE BLOOD COUNT 6.5 K/uL (4.5-11.5) RED BLOOD COUNT 1.44 *L M/uL (4.50-5.90) HEMOGLOBIN 4.6 *L gm/dL (13.5-17.5) CRITICAL RESULTS CALLEDCalled to DR SORIANO 09/25/16 1243Were 2 patient identifiers used? YWas the result read back? Y HEMATOCRIT 14.1 *L % (41.0-53.0) CRITICAL RESULTS CALLEDCalled to DR SORIANO 09/25/16 1243Were 2 patient identifiers used? YWas the result read back? Y MEAN CELL VOLUME 98 fL (80-100) MEAN CORPUSCULAR HGB 32 pg (26-34) MEAN CORPUSCULAR HGB CONC 33 g/dL (31-37) RED CELL DISTRIBUTION WIDTH 16.1 H % (11.6-14.8) PLATELET COUNT 147 L K/uL (150-400) NEUTROPHIL % 79.2 H % (50-75) LYMPH % 10.3 L % (25-40) MONO % 8.4 % (3-14) EOSINOPHIL % 1.7 % (0-4) BASOPHIL % 0.4 % (0-2) RBC MORPHOLOGY 3+ ANISOCYTOSIS~~2+ HYPOCHROMIA~~1+ TEARDROP~~1+ POLYCHROMASIA PT with INR: (EMIR: 09/25/2016 12:29) ( [facility] 09/25/2016 14:11) Final results Test Result Flag Units (Reference) INR 3.0 H (0.8-1.2) Low Intensity Therapy: INR 1.5-2.0 PT range 18.5-23.1Mod.Intensity Therapy: INR 2.0-3.0 PT range 23.1-31.5High Intensity Therapy: INR 2.5-3.5 PT range 27.4-35.5High Intensity Therapy 2: INR 3.0-4.0 PT range 31.5-39.3 APTT 44 H SECONDS (24-34) [id number]: (EMIR: 09/25/2016 12:29) ( [facility] 09/25/2016 12:53) Final results Test Result Flag Units (Reference) D-DIMER QUANTITATIVE 1.06 H ug/mLFEU (0.27-0.52) The primary value of this quantitative assay relates toits negative predictive value (i.e. exclusion) of pulmonaryembolism/deep vein thrombosis/DIC.Elevated levels of d-dimer may also occur with:, age, cancer, inflammation, liver disease,post-op, infection, hematoma, coronary disease, peripheralarteriopathy, bleeding disorders and thrombolytic treatment.Results should be correlated with other clinical andradiological data.Testing Methodology: Latex Immunoassay CMP: (EMIR: 09/25/2016 12:29) ( [facility] 09/25/2016 13:09) Final results Test Result Flag Units (Reference) GLUCOSE 130 H mg/dL (70-110) BUN 125 *H mg/dL (7-18) CRITICAL RESULTS CALLEDCalled to KAILA COLON IN ED 09/25/16 1308Were 2 patient identifiers used? YWas the result read back? Y CREATININE 2.0 H mg/dL (0.6-1.3) Estimated GFR 34.79 mL/min Estimated GFR- 42.17 mL/min Note: Persistent reduction over 3 months in eGFR<60 mL/min/1.73 m2 defines CKD. Patients with eGFR values>=60 mL/min/1.73 m2 may also have CKD if evidence ofpersistent proteinuria. Additional information may be foundat [email or web address].org. SODIUM 143 mmol/L (136-145) POTASSIUM 5.2 H mmol/L (3.5-5.1) CHLORIDE 110 H mmol/L (98-107) CARBON DIOXIDE 27 mmol/L (21-32) CALCIUM 7.7 L mg/dL (8.5-10.1) TOTAL PROTEIN 4.8 L g/dL (6.4-8.2) ALBUMIN 2.4 L g/dL (3.3-5.0) BILIRUBIN, TOTAL 0.6 mg/dL (0.0-1.0) ALKALINE PHOSPHATASE 68 U/L (46-116) AST (SGOT) 19 U/L (15-37) ALT (SGPT) 16 U/L (12-78) Type & Cross: (EMIR: 09/25/2016 12:29) ( MsgRcvd 09/25/2016 13:27) IP Test Result Flag Units (Reference) LEUKOREDUCED PACKED CELLS [id number] OP PC ISSUED 09/25/16 1325 [id number] OP PC ISSUED 09/25/16 1325 PATIENT BLOOD TYPE O Positive Above is a corrected result. Previously reported on ( MsgRcvd 09/25/2016 13:25) as: PATIENT BLOOD TYPE O Positive ANTIBODY SCREEN NEGATIVE Above is a corrected result. Previously reported on ( MsgRcvd 09/25/2016 13:) as: ANTIBODY SCREEN NEGATIVE . PROGRESS AND PROCEDURES Critical care performed (100 minutes). Time includes: direct patient care, patient reassessment, coordination of patient care, interpretation of data (laboratory data, pulse oximetry and prior electrocardiograms), review of patient's medical records, medical consultation, family consultation regarding treatment decisions and documentation of patient care- see progress notes. The patient required critical care due to the acute impairment of vital organ systems (cardiovascular, hematologic and renal) and a high probability of life threatening deterioration. Multiple emergent interventions were required to prevent life threatening deterioration. Discussed case with on-call health care provider, (call returned 14:10 Dr. Peck Vascular at , will review CT to determine where to send. call returned 14:[address] and agreed no rupture and will defer to instructor physical.). Reviewed test results and need for additional work-up. Refers case to other health care provider. Discussed case with on-call health care provider, (call returned 15:22DrHank Brown Learning Manager at [facility], will accept pt, direct admit amd prefers airlift.). Reviewed test results. Consult obtained from vascular surgery. Spoke keyana/ Nikita vascular ERVIN, due to thoracic and abdominal aneurysms and vascular surgeon scrubbed in a case and recommended transfer to . Case discussed. Disposition: Benefits, risks and alternatives to transfer explained to patient and family. Transferred to [facility]. Condition: stable. CLINICAL IMPRESSION Severe acute and chronic anemia associated with acute blood loss. Occult GI bleed with melena, hypotension and shock. 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 No rupture. Moderate acute and chronic renal failure. INSTRUCTIONS Follow-up: Blood pressure screening was not performed during this visit because the patient has an active diagnosis of hypertension. (Electronically signed by Luis Soriano Dr. 09/25/2016 17:09)
--- NOTE | 2016-09-25 16:02 | ED ORDER SUMMARY ---
..... Patient: ERYN ALVARADO OrderSheet [facility] VisitID: [id number] [place] [address] 75y, M Registration Date/Time: 09/25/2016 ORDER SHEET Weight: 68.0 kg (stated) Allergies: No Known Drug Allergy GENERAL ORDERS: CT Thorax wo Cont Urgent (12:30 09/25/2016 Deloris De La Garza) (Ack 12:34 Ramila) (12:41 ALVERTOoerner) CT Abd/Pel wo Cont (H/O AAA, ) Urgent (12:30 09/25/2016 Deloris De La Garza) (Ack 12:34 Ramila) (12:41 ALVERTOoerner) CBC w Diff Urgent (12:32 09/25/2016 Deloris De La Garza) (Ack 12:34 Ramila) (13:22 LSullivan R.N.) CMP Urgent (12:32 09/25/2016 Deloris De La Garza) (Ack 12:34 Ramila) (13:22 LSullivan R.N.) D-Dimer Urgent (12:32 09/25/2016 Deloris De La Garza) (Ack 12:34 Ramila) (13:22 LSullivan R.N.) Type & Screen Urgent (12:32 09/25/2016 Deloris De La Garza) (Ack 12:34 Ramila) (14:12 JSanders R.N.) Type & Cross (severe anemia) (compatability) Urgent (12:45 09/25/2016 Deloris De La Garza) (Cancelled: Physician Order12:48 Deloris De La Garza) (Ack 12:48 Ramila) Transfuse PRBCs (12:46 09/25/2016 Deloris De La Garza) (Ack 12:48 Ramila) (13:22 LSullivan R.N.) NPO (13:06 09/25/2016 Deloris De La Garza) (13:23 LSullivan R.N.) Pena Catheter (13:23 09/25/2016 Anivalivan R.N. verbal order read back to Deloris De La Garza) (13:23 LSullivan R.N.) PT with INR Urgent (14:02 09/25/2016 Deloris De La Garza) (Ack 14:06 ALVERTOoerfabiola) (14:06 ALVERTOoerner) PTT Urgent (14:02 09/25/2016 Deloris De La Garza) (Ack 14:06 ALVERTOoerner) (14:06 KHoerner) MEDICATION ORDERS: Levophed Drip IV : 0.1-0.5 mcg/kg/min (HIGH ALERT MEDICATION, NOW) (Titrate to MAP of 70) (12:53 09/25/2016 Deloris De La Garza) (13:01 SStone R.N.) IV FLUIDS: IV NS : initial bolus none -, then 1000 mL/hr for X1 (NOW) (12:30 09/25/2016 Deloris De La Garza) (13:02 SStone R.N.) IV Lactated Ringers : initial bolus none -, then 200 mL/hr (NOW) (13:08 09/25/2016 Deloris De La Garza) (13:10 SStone R.N.) ORDER SHEET NOTES: [Electronically signed by Nicole Townsend R.N. (16:36 09/25/2016)] [Electronically signed by Luis Pelletier Dr. (17:09 09/25/2016)] [Electronically locked/signed by Nicole Townsend R.N. (16:36 09/25/2016)]
--- NOTE | 2016-09-25 17:10 | ED DISCHARGE INSTRUCTIONS ---
Patient: ERYN ALVARADO General Instructions [facility] VisitID: [id number] [place] [address] 75y, M Registration Date/Time: 09/25/2016 Severe acute and chronic anemia associated with acute blood loss. Occult GI bleed with melena, hypotension and shock. 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 No rupture. Moderate acute and chronic renal failure. INSTRUCTIONS Follow-up: Blood pressure screening was not performed during this visit because the patient has an active diagnosis of hypertension. (Electronically signed by Luis Pelletier Dr. 09/25/2016 17:09)
--- NOTE | 2016-09-25 17:10 | ED MED RECONCILIATION SUMMARY ---
Patient: ERYN ALVARADO Medication Reconciliation Report [facility] VisitID: [id number] [address] [place] [address] 75y, M Registration Date/Time: 09/25/2016 Weight: 68.0 kg Height/Length: 67 in. BMI: 23.5 ALLERGIES: No Known Drug Allergy The patient's Home Medications are listed below: THE FOLLOWING MEDICATIONS NEED TO BE RECONCILED: APIRIN 81 MG DAILY B12 1000 MCG DAILY Carvedilol 25 mg bid FLUTICASONE 2 PUFFS BID PRN FURSEOMIDE 40 MG A.M., 20 MG P.M. Losartan 50 mg daily SIMVASTATIN 20 MG DAILY SPIRONOLACTONE 25 MG DAILY VENTOLIN HFA 108 MCG 2 PUFFS Q4H PRN VTAMIN D3 4000 UNITS DAILY XARELTO 15 MG DAILY The source(s) of the original Home Medication information: Not obtained. The following Medications were given to the patient in the Emergency Department: Levophed [IV DRIP] Drip IV bolus 0, then 6.8 mcg 25.5 mL/hr, administered: 09/25/2016 12:57:00 PM IV NS IV Fluids bolus 1000 mL over 1 hour(s), administered: 09/25/2016 12:37:00 PM IV LACTATED RINGERS IV Fluids bolus 0, then 200 mL/hr, administered: 09/25/2016 1:10:00 PM The following Medications were prescribed to the patient: None.
--- NOTE | 2016-09-25 17:10 | ED MAR SUMMARY ---
..... Medication Administration Record [facility] [address] [place] [address] Patient: ERYN ALVARADO Visit ID: [id number] 75y, M Weight: 68.0 kg Height/Length: 67 in BMI: 23.5 ALLERGIES: No Known Drug Allergy Start 12:37 09/25/2016 Nayeli Fischer R.N., Stop 13:30 09/25/2016 Nicole Townsend R.N. Medication Administered: IV NS (SALINE), Dose: IV Fluids, Bolus: 1000 mL over 1 hour(s), Dispensed: 1000 mL bag, Site: #1. Medication Ordered: IV NS : initial bolus none -, then 1000 mL/hr for X1 (NOW). Start 12:57 09/25/2016 Nayeli Fischer R.N., Stop 16:30 09/25/2016 Nicole Townsend R.N. Medication Administered: LEVOPHED [IV DRIP] (NOREPINEPHRINE BITARTRATE), Dose: 6.8 mcg Drip IV over 1 hour(s), Rate: 25.5 mL/hr, Dispensed: 250 mL bag, Site: #2. Medication Ordered: Levophed Drip IV : 0.1-0.5 mcg/kg/min (HIGH ALERT MEDICATION, NOW) (Titrate to MAP of 70). Start 13:10 09/25/2016 Nayeli Fischer R.N., Stop 16:33 09/25/2016 Nicole Townsend R.N. Medication Administered: IV LACTATED RINGERS, Dose: IV Fluids over 5 hour(s), Rate: 200 mL/hr, Dispensed: 200 mL bag, Site: #1 left AC. Medication Ordered: IV Lactated Ringers : initial bolus none -, then 200 mL/hr (NOW).
--- NOTE | 2016-09-25 17:10 | ED MAR SUMMARY ---
..... Medication Administration Record [facility] [address] [place] [address] Patient: ERYN ALVARADO Visit ID: [id number] 75y, M Weight: 68.0 kg Height/Length: 67 in BMI: 23.5 ALLERGIES: No Known Drug Allergy Start 12:37 09/25/2016 Nayeli Fischer R.N., Stop 13:30 09/25/2016 Nicole Townsend R.N. Medication Administered: IV NS (SALINE), Dose: IV Fluids, Bolus: 1000 mL over 1 hour(s), Dispensed: 1000 mL bag, Site: #1. Medication Ordered: IV NS : initial bolus none -, then 1000 mL/hr for X1 (NOW). Start 12:57 09/25/2016 Nayeli Fischer R.N., Stop 16:30 09/25/2016 Nicole Townsend R.N. Medication Administered: LEVOPHED [IV DRIP] (NOREPINEPHRINE BITARTRATE), Dose: 6.8 mcg Drip IV over 1 hour(s), Rate: 25.5 mL/hr, Dispensed: 250 mL bag, Site: #2. Medication Ordered: Levophed Drip IV : 0.1-0.5 mcg/kg/min (HIGH ALERT MEDICATION, NOW) (Titrate to MAP of 70). Start 13:10 09/25/2016 Nayeli Fischer R.N., Stop 16:33 09/25/2016 Nicole Townsend R.N. Medication Administered: IV LACTATED RINGERS, Dose: IV Fluids over 5 hour(s), Rate: 200 mL/hr, Dispensed: 200 mL bag, Site: #1 left AC. Medication Ordered: IV Lactated Ringers : initial bolus none -, then 200 mL/hr (NOW).
--- NOTE | 2016-09-25 17:10 | ED DISCHARGE INSTRUCTIONS ---
Patient: ERYN ALVARADO General Instructions [facility] VisitID: [id number] [place] [address] 75y, M Registration Date/Time: 09/25/2016 Severe acute and chronic anemia associated with acute blood loss. Occult GI bleed with melena, hypotension and shock. 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 No rupture. Moderate acute and chronic renal failure. INSTRUCTIONS Follow-up: Blood pressure screening was not performed during this visit because the patient has an active diagnosis of hypertension. (Electronically signed by Luis Pelleiter Dr. 09/25/2016 17:09)
--- NOTE | 2016-09-25 17:10 | ED MED RECONCILIATION SUMMARY ---
Patient: ERYN ALVARADO Medication Reconciliation Report [facility] VisitID: [id number] [address] [place] [address] 75y, M Registration Date/Time: 09/25/2016 Weight: 68.0 kg Height/Length: 67 in. BMI: 23.5 ALLERGIES: No Known Drug Allergy The patient's Home Medications are listed below: THE FOLLOWING MEDICATIONS NEED TO BE RECONCILED: APIRIN 81 MG DAILY B12 1000 MCG DAILY Carvedilol 25 mg bid FLUTICASONE 2 PUFFS BID PRN FURSEOMIDE 40 MG A.M., 20 MG P.M. Losartan 50 mg daily SIMVASTATIN 20 MG DAILY SPIRONOLACTONE 25 MG DAILY VENTOLIN HFA 108 MCG 2 PUFFS Q4H PRN VTAMIN D3 4000 UNITS DAILY XARELTO 15 MG DAILY The source(s) of the original Home Medication information: Not obtained. The following Medications were given to the patient in the Emergency Department: Levophed [IV DRIP] Drip IV bolus 0, then 6.8 mcg 25.5 mL/hr, administered: 09/25/2016 12:57:00 PM IV NS IV Fluids bolus 1000 mL over 1 hour(s), administered: 09/25/2016 12:37:00 PM IV LACTATED RINGERS IV Fluids bolus 0, then 200 mL/hr, administered: 09/25/2016 1:10:00 PM The following Medications were prescribed to the patient: None.
== END 2016-09-25 14:24 | disposition short-term general hospital (02) ==
LOC: ED SRH 12:23
DX: D62 Acute posthemorrhagic anemia (principal); K92.2 Gastrointestinal hemorrhage, unspecified; R57.9 Shock, unspecified; I71.02 Dissection of abdominal aorta; I71.03 Dissection of thoracoabdominal aorta; D50.0 Iron deficiency anemia secondary to blood loss (chronic); I95.9 Hypotension, unspecified; I13.10 Hypertensive heart and chronic kidney disease without heart failure, with stage 1 through stage 4 chronic kidney disease, or unspecified chronic kidney disease; N17.9 Acute kidney failure, unspecified; N18.9 Chronic kidney disease, unspecified; Z87.891 Personal history of nicotine dependence; Z79.82 Long term (current) use of aspirin; Z79.899 Other long term (current) drug therapy